=== PATIENT | female | born 1960 | race Caucasian/White ===

== ENCOUNTER 2018-03-27 01:42 | Emergency (ER) | payer OTHER, SELFPAY ==
[2018-03-27 01:50] VITALS: BP 191/91; PULSE 83; RESP 16; TEMP 36.3; O2SAT 97; BMI 27.4
[2018-03-27] MEDS: MECLIZINE HCL 12.5 MG TABLET 50 MG PO (02:38)
--- NOTE | 2018-03-27 02:38 | ED_ITS ---
HPI - General Adult General Chief complaint: Hypertension Stated complaint: high blood pressure x2 days Time Seen by Provider: 03/27/18 02:13 Source: patient Mode of arrival: ambulatory Limitations: no limitations History of Present Illness HPI narrative: The patient has not felt well for couple days. This includes mild stomach upset, but no vomiting. She has continued to drink plenty of fluids. She denies fever chills. She has had intermittent dizziness for the last couple days. She has had associated sore throat, ear pressure or vomiting. She woke from sleep, not feeling well. She checked her blood pressure , her blood pressures normally 130s-140s. She takes lisinopril. Her blood pressure is more elevated, on repeat check she was 180s. She has no headache, visual changes, chest pain or dyspnea upon arrival. She has not had hypertensive crisis. She is generally healthy. She does do scheduled fasting periods, but this is not new. Overall her appetite has been adequate. Or water input is very good. She has no other GI symptoms, no diarrhea. She denies dysuria. She has no focal weakness or numbness. Related Data Home Medications Medication Instructions Recorded Confirmed lisinopril 10 mg PO QDAY #0 06/17/16 thyroid (pork) [[place] Thyroid] 90 mg PO QDAY #0 06/17/16 Previous Rx's Medication Instructions Recorded ondansetron HCl [Zofran] 4 mg PO Q4HP PRN #20 tab 06/17/16 meclizine 25 mg PO QID PRN #20 tab 03/27/18 Allergies Allergy/AdvReac Type Severity Reaction Status Date / Time Sulfa (Sulfonamide Allergy Unknown Verified 03/27/18 01:54 Antibiotics) [SULFA (SULFONAMIDE ANTIBIOTICS)] hydrochlorothiazide AdvReac Verified 03/27/18 01:54 Review of Systems Review of Systems ROS Unobtainable: All systems reviewed & are unremarkable except as noted in HPI and below Constitutional Denies headache(s) Eyes Denies change in vision ENT Ears, Nose, Mouth, and Throat: Denies dysphagia, Reports dizziness, Denies headache(s), Denies neck pain and Denies sore throat Cardiovascular Denies chest pain, Denies irregular heart rhythm, Denies lightheadedness, Denies palpitations and Denies dyspnea Respiratory Denies cough, Denies dyspnea and Reports wheezing Gastrointestinal Gastrointestinal: Denies abdominal pain, Denies dysphagia, Reports nausea and Denies vomiting Genitourinary Denies dysuria Musculoskeletal Denies back pain and Denies neck pain Integumentary/Breasts Denies rash Neurologic Reports dizziness, Denies headache(s) and Denies focal weakness Psychiatric Reports anxiety Endocrine Denies palpitations Allergic/Immunologic Reports wheezing PFSH Medical History Hypertension (Acute) Hypothyroidism (Acute) Surgical History No history of previous surgery (Acute) Social History Smoking Status: Never smoker Exam Initial Vital Signs Initial Vital Signs: Vital Signs Temperature 97.4 F L 03/27/18 01:50 Pulse Rate 83 03/27/18 01:50 Respiratory Rate 16 03/27/18 01:50 Blood Pressure 191/91 H 03/27/18 01:50 Pulse Oximetry 97 03/27/18 01:50 Const General: cooperative and well developed Nutritional Appearance: well nourished Orientation: alert, awake and oriented x3 HENMT Head: normocephalic and atraumatic Ears: external ears normal and TM's normal bilaterally Nose: external nose normal and No nasal discharge Face and sinus: sinuses nontender and face symmetric Mouth: oral mucosae normal and moist mucous membranes Teeth and gingiva: dentition normal Throat: posterior oropharynx normal, tonsils normal and uvula midline Eyes General: appearance normal, both eyes and all related structures Eyelids: eyelids normal Conjunctivae: conjunctivae normal Sclera: sclerae normal Pupils: PERRL EOM: EOM intact bilaterally Neck Neck: No lymphadenopathy Resp Effort & Inspection: normal respiratory effort, able to speak in complete sentences, no respiratory distress and no use of accessory muscles Auscultation: clear to auscultation bilaterally, no rales, no rhonchi and no wheezes Cardio Rate: regular rate Rhythm: regular rhythm Heart Sounds: no click, no gallops, no murmurs and no rubs Pulses: normal peripheral pulses GI Inspection: non-distended Palpation: soft, No no hepatosplenomegaly, No guarding and No tender Auscultation: normal bowel sounds Back/Spine/Pelvis Back: No CVA tenderness Skin General: no rashes or lesions noted Neuro General: alert, oriented x3, gait normal, no focal motor deficits and [place] (Positive bilaterally) Speech: speech normal Extrem General: full ROM and no pedal edema Psych Appearance: well kempt Mental Status: mental status grossly normal Speech and Movement: speech and movement normal Attitude: cooperative Thought Content: normal Judgment: judgment good Course Course Narrative: Dizziness has improved with meclizine. Her heart rate is in the 140s, she is otherwise asymptomatic. She is okay for discharge home. Orders Ordered: ED Orders 03/27/18 EKG-12 Lead Routine 03/27/18 02:50 Urine Microscopic Stat Discontinued Medications Meclizine HCl (Antivert) 50 mg PO NOW ONE Stop: 03/27/18 02:31 Last Admin: 03/27/18 02:38 Dose: 50 mg Vital Signs - 8 hr 03/27/18 01:50 03/27/18 02:48 03/27/18 03:11 Temperature 97.4 F L Pulse Rate 83 70 68 Respiratory Rate 16 12 12 Blood Pressure 191/91 H Blood Pressure [Left Arm] 160/80 H 148/88 H Pulse Oximetry 97 97 96 03/27/18 03:31 Temperature Pulse Rate 71 Respiratory Rate 13 Blood Pressure 148/91 H Blood Pressure [Left Arm] Pulse Oximetry 96 Medical Decision Making Lab Data Lab Results 03/27/18 Range/Units 02:50 Urine RBC 0-1/hpf (0-5/HPF) Urine WBC None seen (0-5/HPF) Ur Squamous Epith Cells 0-1 /hpf Urine Bacteria Occasional (0-1) (None) Ur Culture Indicated? Cult not indicated Urine Dip Bedside Urine Glucose Negative Bedside Urine Bilirubin - Negative Bedside Urine Ketone - Negative Urine Specific [place] 1.010 Bedside Urine Occult Blood ++ Bedside Urine pH 7.5 Bedside Urine Protein - Negative Bedside Urine Urobilinogen - Negative Bedside Urine Nitrite - Negative Bedside Urine Leukocytes - Negative Esterase Point of care testing: Urine Dip Bedside Urine Glucose Negative Bedside Urine Bilirubin - Negative Bedside Urine Ketone - Negative Urine Specific [place] 1.010 Bedside Urine Occult Blood ++ Bedside Urine pH 7.5 Bedside Urine Protein - Negative Bedside Urine Urobilinogen - Negative Bedside Urine Nitrite - Negative Bedside Urine Leukocytes - Negative Esterase ECG Data Attestation: I personally reviewed and interpreted this ECG as follows: (Normal sized the rhythm rate 72 bpm. Possible right ventricular conduction delay. Minimal Q-waves in III and AVF. Normal intervals. No ectopy. No acute findings.) Discharge Plan Departure Patient Disposition: Home Clinical Impression: Acute labyrinthitis, Elevated blood pressure reading Discharge Date/Time: 03/27/18 03:36 Interventions: ED Discharge Assessment Last Done: 03/27/18 03:31 Instructions: DI for Labyrinthitis Activity Restrictions/Additional Instructions: Follow-up with her doctor regarding blood pressure management. Meclizine every 6 hr as needed for dizziness. This medication will also help with nausea. Rest, drink plenty of fluids. Return here or follow up with her doctor if symptoms persist more than 3 days. Prescriptions: New meclizine 25 mg tablet 25 mg PO QID PRN (Reason: dizziness) Qty: 20 RF: 0 No Action lisinopril 10 MG tablet 10 mg PO QDAY Qty: 0 RF: 0 thyroid (pork) [[facility] Thyroid] 90 MG tablet 90 mg PO QDAY Qty: 0 RF: 0 ondansetron HCl [Zofran] 4 MG tablet 4 mg PO Q4HP PRNQty: 20 RF: 0
[2018-03-27 02:48] VITALS: BP 160/80; PULSE 70; RESP 12; O2SAT 97
[2018-03-27 02:55] LABS: WBC Urine None Seen (0-5/HPF)
[2018-03-27 03:03] LABS: RBC Urine 0-1/HPF (0-5/HPF); Squamous Epithelial Cell Urine 0-1 /HPF
[2018-03-27 03:04] LABS: Bacteria Urine Occasional (0-1); Culture Indicated Urine Cult Not Indicated
[2018-03-27 03:11] VITALS: BP 148/88; PULSE 68; RESP 12; O2SAT 96
[2018-03-27 03:31] VITALS: BP 148/91; PULSE 71; RESP 13; O2SAT 96
== END 2018-03-27 03:36 | disposition home or self-care (01) ==
PROVIDERS: Emergency Provider Emergency Medicine
DX: H83.09 Labyrinthitis, unspecified ear (principal); R03.0 Elevated blood-pressure reading, without diagnosis of hypertension
CPT/HCPCS: 81003; 81015; 93005; 99282; 99284

== ENCOUNTER → 2018-05-01 15:37 | Outpatient (CLI) | payer OTHER, SELFPAY ==
--- NOTE | 2018-05-01 | DI.US.S_ITS ---
PROCEDURE: US CAROTID DOPPLER BI INDICATIONS: HYPERTENSION TECHNIQUE: Color and pulse Doppler interrogation was performed of both carotid systems, with image documentation and velocity measurements. COMPARISON: None. FINDINGS: Stenosis calculations are based on SRU (Society [employer] in Ultras[employer]) criteria. Right side: Brachial blood pressure: 166/98 mm Hg. Common carotid artery peak systolic velocity: 79 cm/sec. Internal carotid artery peak systolic velocity: 67 cm/sec. Internal carotid artery end diastolic velocity: 24 cm/sec. External carotid artery peak systolic velocity: 63 cm/sec. ICA/CCA peak systolic ratio: 0.85 . [place] scale imaging description: Minimal plaque at the bifurcation. Percent internal carotid artery stenosis: Less than 50%. Vertebral artery: Flow direction is antegrade. Left side: Brachial blood pressure: 149/92 mm Hg. Common carotid artery peak systolic velocity: 74 cm/sec. Internal carotid artery peak systolic velocity: 54 cm/sec. Internal carotid artery end diastolic velocity: 22 cm/sec. External carotid artery peak systolic velocity: 72 cm/sec. ICA/CCA peak systolic ratio: 0.74. [place] scale imaging description: Minimal plaque at the bifurcation. Percent internal carotid artery stenosis: Less than 50%. Vertebral artery: Flow direction is antegrade. IMPRESSION: Less than 50% narrowing of the internal carotid arteries bilaterally. Dictated by: Kisha Trujillo M.D. on 05/01/2018 at 17:08 Approved by: Kisha Trujillo M.D. on 05/01/2018 at 17:09
== END ==
PROVIDERS: Visit Provider Naturopath
DX: I65.23 Occlusion and stenosis of bilateral carotid arteries (principal); I10 Essential (primary) hypertension
CPT/HCPCS: 93880

== ENCOUNTER 2019-05-13 04:47 | Observation (INO) | payer OTHER, SELFPAY ==
[2019-05-13] VITALS (17 sets, daily range): BP systolic 113–167; BP diastolic 55–103; PULSE 78–177; RESP 12–21; TEMP 36.7–37.5; O2SAT 94–99; BMI 23.3
--- NOTE | 2019-05-13 04:56 | ED_ITS ---
HPI - General Adult General Chief complaint: Arrhythmia/Palpitations Stated complaint: feels like heart is out of rythym Time Seen by Provider: 05/13/19 04:51 Source: patient Mode of arrival: Ambulatory Limitations: no limitations History of Present Illness HPI narrative: Patient is a 59-year-old female. History of hypertension and hypothyroid. Here for evaluation of feeling like her heart is beating fast. Patient states that for the past couple days she has had a runny nose and a cough. No fevers. No problems breathing. No chest pain. Went to bed last evening feeling well. Woke up at about 0300 hours in the morning. Took an ibuprofen. Then woke up again at for the morning feel like her heart is beating fast. It has been constant since she woke up. Ambulated into the emergency department. No prior history of atrial fibrillation however she states that ?all my family ?has had atrial fibrillation. Not on anticoagulation. No prior cardiac history. Related Data Home Medications Medication Instructions Recorded Confirmed thyroid (pork) [[place] Thyroid] 90 mg PO QDAY #0 06/17/16 08/29/18 Previous Rx's Medication Instructions Recorded lisinopril 20 mg tablet 20 mg PO QDAY #90 tab 08/29/18 amlodipine 5 mg tablet 5 mg PO DAILY #90 tab 03/12/19 Allergies Allergy/AdvReac Type Severity Reaction Status Date / Time Sulfa (Sulfonamide Allergy Unknown Verified 08/29/18 09:52 Antibiotics) [SULFA (SULFONAMIDE ANTIBIOTICS)] hydrochlorothiazide AdvReac Verified 08/29/18 09:52 Review of Systems Constitutional Constitutional: Denies fever(s) and Denies headache(s) ENT Ears, Nose, Mouth, and Throat: Denies vertigo, Denies dizziness, Denies headache(s) and Reports nasal congestion Cardiovascular Cardiovascular: Denies chest pain, Reports rapid heart rate, Reports palpitations and Denies dyspnea Respiratory Respiratory: Reports cough and Denies dyspnea Gastrointestinal Gastrointestinal: Denies abdominal pain, Denies nausea and Denies vomiting Genitourinary Genitourinary: Denies dysuria Musculoskeletal Musculoskeletal: Denies myalgias and Denies arthralgias Integumentary/Breasts Skin/Breast: Denies lesions and Denies rash Neurologic Neurologic: Denies behavioral changes, Denies vertigo, Denies dizziness and Denies headache(s) Psychiatric Psychiatric: Denies behavioral changes Endocrine Endocrine: Reports palpitations Hematologic/Lymphatic Hematologic/Lymphatic: Denies easy bleeding and Denies easy bruising Patient History Medical History Chicken pox (Resolved) Headache (Chronic) Hypertension (Chronic) Hypothyroidism (Chronic) Measles (Resolved) Mumps (Resolved) Osteopenia (Chronic) Sjogren's syndrome (Chronic) Surgical History (Updated 09/04/18 @ 14:36 by Jacinda Mays) Anesthesia (Resolved) History of appendectomy (Resolved) History of foot surgery (Resolved) History of hysterectomy (Resolved) No history of previous surgery (Acute) Social History Smoking Status: Never smoker Smoking Status: Never smoker alcohol intake frequency: 0-2 drinks per day Substance Use Type: does not use Exam Initial Vital Signs Initial Vital Signs: Vital Signs Temperature 98.0 F 05/13/19 04:52 Pulse Rate 177 H 05/13/19 04:52 Respiratory Rate 18 05/13/19 04:52 Blood Pressure 137/75 05/13/19 04:52 Pulse Oximetry 97 05/13/19 04:52 Const General: cooperative and comfortable Limitations: mental status not altered HENMT Head: normal to inspection and normocephalic Resp Effort & Inspection: normal respiratory effort Auscultation: clear to auscultation bilaterally Cardio Rate: tachycardic Rhythm: abnormal rhythm irregularly irregular Pulses: radial pulses present GI Inspection: non-distended Palpation: soft Skin Lesions: no lesions Rashes: no rashes Neuro General: alert and awake Cognition: normal cognition Speech: speech normal Extrem General: normal to inspection and capillary refill normal Psych Appearance: grossly normal and well kempt Procedures Cardioversion Consent Signed: Yes Indication: AFib Stability: Stable Number of attempts (shocks): 3 Joules used: 150 Cardiac rhythm post-cardioversion: AFib Procedural Sedation Consent signed: Yes Time out performed: Yes Indication: cardioversion Presedation Evaluation: See note ASA Class: II Mallampati Airway Classification: Class I Preparation: monitoring coordinator applied, pulse oximeter, capnometry used and supplemental O2 applied Fentanyl: IV Fentanyl dose (mcg): 25 IV Propofol dose (mg): 90 ED Sedation Level: Moderate (Concious) Patient Tolerated Procedure: Well and No complications Scores GCS [place] coma scale eye opening: Spontaneous [place] coma scale verbal response: Orientated [place] coma scale motor response: Obey commands Roxie coma scale total score: 15 Course Orders Ordered: ED Orders 05/13/19 04:52 EKG-12 Lead Stat 05/13/19 05:00 Basic Metabolic Panel Stat Complete Blood Count AUTO DIFF Stat NT-proBNP (BNP-Adult 18+) Stat Partial Thromboplastin Time Stat Prothrombin Time INR Stat Thyroid Stimulating Hormone Stat Troponin I Stat 05/13/19 05:38 CT angio chest PE protocol Stat 05/13/19 06:25 Respiratory Panel (Film Array) Stat 05/13/19 06:32 Urine Microscopic Stat 05/13/19 08:24 EC echo doppler complete Stat DILTIAZEM (Diltiazem 125 Mg/125 [id number]) 125 mg in 125 mls @ 5 mls/hr IV TITRATE ASCENCION; Protocol Last Titration: 05/13/19 06:39 Dose: 10 mg/hr, 10 mls/hr Documented by: Admin: 05/13/19 06:20 Dose: 5 mg/hr, 5 mls/hr Documented by: ANTHONY Sodium Chloride (Normal Saline 0.9%) 1,000 mls @ 125 mls/hr IV CONT ASCENCION Last Admin: 05/13/19 06:46 Dose: 125 mls/hr Documented by: ANTHONY Discontinued Medications Diltiazem HCl (Cardizem) 20 mg IV NOW ONE Stop: 05/13/19 05:32 Last Admin: 05/13/19 05:40 Dose: 20 mg Documented by: ANTHONY Fentanyl (Sublimaze) 25 mcg IV NOW ONE Stop: 05/13/19 05:06 Last Admin: 05/13/19 05:17 Dose: 25 mcg Documented by: ANISH Sodium Chloride (Normal Saline 0.9%) 1,000 mls @ 1,000 mls/hr IV BOLUS ONE Stop: 05/13/19 06:38 Last Infusion: 05/13/19 06:54 Dose: 0 mls/hr Documented by: Admin: 05/13/19 05:20 Dose: 1,000 mls/hr Documented by: ANTHONY Levofloxacin (Levaquin) 750 mg in 150 mls @ 100 mls/hr IV NOW ONE Stop: 05/13/19 08:18 Last Admin: 05/13/19 06:56 Dose: 100 mls/hr Documented by: ANTHONY Metoprolol Succinate (Toprol Xl) 25 mg PO NOW ONE Stop: 05/13/19 08:25 Metoprolol Tartrate (Lopressor) 5 mg IV NOW ONE Stop: 05/13/19 06:57 Last Admin: 05/13/19 07:17 Dose: 5 mg Documented by: ANTHONY Propofol (Diprivan) 100 mg IV NOW ONE Stop: 05/13/19 05:06 Last Admin: 05/13/19 05:20 Dose: 100 mg Documented by: ANISH Rivaroxaban (Xarelto) 15 mg PO NOW ONE Stop: 05/13/19 06:57 Last Admin: 05/13/19 07:15 Dose: 15 mg Documented by: ANTHONY Vital Signs Vital signs: Vital Signs - 8 hr 05/13/19 04:52 05/13/19 05:25 05/13/19 05:28 Temperature 98.0 F Pulse Rate 177 H 166 H 166 H Respiratory Rate 18 18 21 Blood Pressure 137/75 Blood Pressure [Left Arm] 113/67 120/83 Pulse Oximetry 97 97 94 05/13/19 05:30 05/13/19 05:37 05/13/19 05:40 Temperature Pulse Rate 166 H 177 H 166 H Respiratory Rate 20 20 Blood Pressure 158/85 H Blood Pressure [Left Arm] 164/102 H Pulse Oximetry 96 05/13/19 06:41 05/13/19 06:50 05/13/19 07:00 Temperature Pulse Rate 163 H 157 H 167 H Respiratory Rate 16 18 20 Blood Pressure Blood Pressure [Left Arm] 145/95 H 167/67 H 136/83 Pulse Oximetry 97 96 96 05/13/19 07:30 05/13/19 07:43 Temperature Pulse Rate 143 H 128 H Respiratory Rate 12 16 Blood Pressure Blood Pressure [Left Arm] 119/103 H 132/89 Pulse Oximetry 96 96 Medical Decision Making Medical Records Medical records reviewed: Yes I reviewed the patient's medical records. Lab Data Lab results reviewed: Yes I reviewed the patient's lab results. Result diagrams: 05/13/19 05:00 05/13/19 05:00 Labs: Lab Results 05/13/19 05/13/19 05/13/19 Range/Units 05:00 05:00 05:00 WBC 10.7 (4.5-11.0) X10^3/uL RBC 5.08 (4.0-5.2) X10^6/uL Hgb 15.7 (12.0-16.0) g/dL Hct 46.6 H (36-46) % MCV 91.6 (80-100) fL MCH 30.8 (26-34) PG MCHC 33.6 (30-36) % RDW 13.0 (11.6-14.8) % Plt Count 221 (150-400) X10^3/uL Neut % (Auto) 70.4 (50-75) % Lymph % (Auto) 18.9 L (25-40) % [place] % (Auto) 9.6 (3-14) % Eos % (Auto) 0.7 L (2-4) % Baso % (Auto) 0.4 (0-2) % Neut # (Auto) 7600 H (4999-2660) /uL Lymph # (Auto) 2000 (8249-9289) /uL [place] # (Auto) 1000 H (0-900) /uL Eos # (Auto) 100 (0-450) /uL Baso # (Auto) 0 (0-100) /uL PT 13.2 H (10.1-12.7) SECONDS INR 1.1 (0.9-1.3) APTT 32 (26.4-36.2) SECONDS Sodium 133 L (137-145) mmol/L Potassium 3.9 (3.4-5.1) mmol/L Chloride 96 L (98-107) mmol/L Carbon Dioxide 28 (22-32) mmol/L BUN 11 (7-17) mg/dL Creatinine 0.65 (0.52-1.04) mg/dL Estimated GFR > 60.0 (>60) mL/min BUN/Creatinine Ratio 16.9 (6-22) Glucose 129 H (80-110) mg/dL Calcium 9.4 (8.4-10.2) mg/dL Troponin I (0.01-0.034) ng/mL NT-Pro-B Natriuret Pep (<125) pg/mL TSH (0.47-4.68) uIU/mL Urine RBC (0-5/HPF) Urine WBC (0-5/HPF) Ur Squamous Epith Cells (0-5/HPF) Urine Bacteria (None) Ur Culture Indicated? Chlamy pneumoniae PCR (Not Detect) Adenovirus (PCR) (Not Detect) B.parapertussis DNA PCR (Not Detect) Coronavirus OC43 (PCR) (Not Detect) Coronavirus HKU1 (PCR) (Not Detect) Coronavirus 229E (PCR) (Not Detect) Coronavirus NL63 (PCR) (Not Detect) Human Metapneumovir PCR (Not Detect) Influenza Type A (PCR) (Not Detect) Influenza Type B (PCR) (Not Detect) M. pneumoniae (PCR) (Not Detect) Parainfluenza 1 (PCR) (Not Detect) Parainfluenza 2 (PCR) (Not Detect) Parainfluenza 3 (PCR) (Not Detect) Parainfluenza 4 (PCR) (Not Detect) RSV (PCR) (Not Detect) Entero/Rhino (PCR) (Not Detect) 05/13/19 05/13/19 05/13/19 Range/Units 05:00 05:00 05:00 WBC (4.5-11.0) X10^3/uL RBC (4.0-5.2) X10^6/uL Hgb (12.0-16.0) g/dL Hct (36-46) % MCV (80-100) fL MCH (26-34) PG MCHC (30-36) % RDW (11.6-14.8) % Plt Count (150-400) X10^3/uL Neut % (Auto) (50-75) % Lymph % (Auto) (25-40) % [place] % (Auto) (3-14) % Eos % (Auto) (2-4) % Baso % (Auto) (0-2) % Neut # (Auto) (8813-9224) /uL Lymph # (Auto) (5222-7573) /uL [place] # (Auto) (0-900) /uL Eos # (Auto) (0-450) /uL Baso # (Auto) (0-100) /uL PT (10.1-12.7) SECONDS INR (0.9-1.3) APTT (26.4-36.2) SECONDS Sodium (137-145) mmol/L Potassium (3.4-5.1) mmol/L Chloride (98-107) mmol/L Carbon Dioxide (22-32) mmol/L BUN (7-17) mg/dL Creatinine (0.52-1.04) mg/dL Estimated GFR (>60) mL/min BUN/Creatinine Ratio (6-22) Glucose (80-110) mg/dL Calcium (8.4-10.2) mg/dL Troponin I < 0.012 (0.01-0.034) ng/mL NT-Pro-B Natriuret Pep 327 H (<125) pg/mL TSH 2.29 (0.47-4.68) uIU/mL Urine RBC (0-5/HPF) Urine WBC (0-5/HPF) Ur Squamous Epith Cells (0-5/HPF) Urine Bacteria (None) Ur Culture Indicated? Chlamy pneumoniae PCR (Not Detect) Adenovirus (PCR) (Not Detect) B.parapertussis DNA PCR (Not Detect) Coronavirus OC43 (PCR) (Not Detect) Coronavirus HKU1 (PCR) (Not Detect) Coronavirus 229E (PCR) (Not Detect) Coronavirus NL63 (PCR) (Not Detect) Human Metapneumovir PCR (Not Detect) Influenza Type A (PCR) (Not Detect) Influenza Type B (PCR) (Not Detect) M. pneumoniae (PCR) (Not Detect) Parainfluenza 1 (PCR) (Not Detect) Parainfluenza 2 (PCR) (Not Detect) Parainfluenza 3 (PCR) (Not Detect) Parainfluenza 4 (PCR) (Not Detect) RSV (PCR) (Not Detect) Entero/Rhino (PCR) (Not Detect) 05/13/19 05/13/19 Range/Units 06:25 06:32 WBC (4.5-11.0) X10^3/uL RBC (4.0-5.2) X10^6/uL Hgb (12.0-16.0) g/dL Hct (36-46) % MCV (80-100) fL MCH (26-34) PG MCHC (30-36) % RDW (11.6-14.8) % Plt Count (150-400) X10^3/uL Neut % (Auto) (50-75) % Lymph % (Auto) (25-40) % [place] % (Auto) (3-14) % Eos % (Auto) (2-4) % Baso % (Auto) (0-2) % Neut # (Auto) (9847-0351) /uL Lymph # (Auto) (8860-5391) /uL [place] # (Auto) (0-900) /uL Eos # (Auto) (0-450) /uL Baso # (Auto) (0-100) /uL PT (10.1-12.7) SECONDS INR (0.9-1.3) APTT (26.4-36.2) SECONDS Sodium (137-145) mmol/L Potassium (3.4-5.1) mmol/L Chloride (98-107) mmol/L Carbon Dioxide (22-32) mmol/L BUN (7-17) mg/dL Creatinine (0.52-1.04) mg/dL Estimated GFR (>60) mL/min BUN/Creatinine Ratio (6-22) Glucose (80-110) mg/dL Calcium (8.4-10.2) mg/dL Troponin I (0.01-0.034) ng/mL NT-Pro-B Natriuret Pep (<125) pg/mL TSH (0.47-4.68) uIU/mL Urine RBC 0-1/hpf (0-5/HPF) Urine WBC None seen (0-5/HPF) Ur Squamous Epith Cells 0-1 /hpf (0-5/HPF) Urine Bacteria Many (>30) H (None) Ur Culture Indicated? Cult not indicated Chlamy pneumoniae PCR Not detected (Not Detect) Adenovirus (PCR) Not detected (Not Detect) B.parapertussis DNA PCR Not detected (Not Detect) Coronavirus OC43 (PCR) Not detected (Not Detect) Coronavirus HKU1 (PCR) Not detected (Not Detect) Coronavirus 229E (PCR) Not detected (Not Detect) Coronavirus NL63 (PCR) Not detected (Not Detect) Human Metapneumovir PCR Detected H (Not Detect) Influenza Type A (PCR) Not detected (Not Detect) Influenza Type B (PCR) Not detected (Not Detect) M. pneumoniae (PCR) Not detected (Not Detect) Parainfluenza 1 (PCR) Not detected (Not Detect) Parainfluenza 2 (PCR) Not detected (Not Detect) Parainfluenza 3 (PCR) Not detected (Not Detect) Parainfluenza 4 (PCR) Not detected (Not Detect) RSV (PCR) Not detected (Not Detect) Entero/Rhino (PCR) Not detected (Not Detect) Urine Dip Bedside Urine Glucose Negative Bedside Urine Bilirubin - Negative Bedside Urine Ketone ++ 40 Urine Specific [place] 1.010 Bedside Urine Occult Blood ++ Bedside Urine pH 7.5 Bedside Urine Protein - Negative Bedside Urine Urobilinogen - Negative Bedside Urine Nitrite - Negative Bedside Urine Leukocytes +/- 15 Esterase Point of care testing: Urine Dip Bedside Urine Glucose Negative Bedside Urine Bilirubin - Negative Bedside Urine Ketone ++ 40 Urine Specific [place] 1.010 Bedside Urine Occult Blood ++ Bedside Urine pH 7.5 Bedside Urine Protein - Negative Bedside Urine Urobilinogen - Negative Bedside Urine Nitrite - Negative Bedside Urine Leukocytes +/- [address] scan - abdomen/pelvis: Radiologist's Impression: Focal infiltrate or information in the left lower lobe. Otherwise unremarkable study. No pulmonary embolism ECG Data Attestation: I personally reviewed and interpreted this ECG as follows: Prior ECG tracings: not available for review Interpretation: Atrial fibrillation Ventricular rate of 177 Normal axis Normal QRS Nonspecific ST T wave changes MDM Narrative Medical decision making narrative: Symptoms started within the past 6 hours. Arrive tachycardic but not hypotensive. Stable. Had a discussion with her regarding treatment options to include rate control versus rhythm control. After this discussion patient opted for the cardioversion. Three tabs at cardioversion with the 1st two had 150 joules and the 3rd at 200 joules unsuccessful. After each attempted cardioversion patient did convert to a sinus rhythm for approximately 10 seconds with a heart rate in the 80s to 90s but then converted back to atrial fibrillation. Patient tolerated these procedures well. Did discuss the case with Dr. stack with cardiology who recommended further investigation of the cause of her atrial fibrillation. A CT scan of the chest was ordered which did not show any pulmonary embolism but initial report showed will was concerning for a left lower lobe pneumonia. She was given Levaquin for this. Her respiratory panel then resulted as human metapneumovirus. Patient was started on a Cardizem drip. This was minimally effective. She was given metoprolol IV which improved her heart rate somewhat.. Patient was also given anticoagulation. Discussed the case with Dr. Prado with Internal Medicine agree to admit the patient for further evaluation and treatment. He asked that I give 25 mg of metoprolol p.o. which was ordered. He also asked me to order her an echocardiogram to be performed as an inpatient which was also performed. He will follow up on the results of this. I did discuss the diagnosis in the admission with the patient. Both her and her who is at bedside expressed understanding and agreement. Discharge Plan Departure Patient Disposition: Admitted as Observation Clinical Impression: Infection due to human metapneumovirus (hMPV) Atrial fibrillation Qualifiers: Atrial fibrillation type: unspecified Qualified Code(s): I48.91 - Unspecified atrial fibrillation Pneumonia Qualifiers: Pneumonia type: due to unspecified organism Laterality: left Lung location: lower lobe of lung Qualified Code(s): J18.9 - Pneumonia, unspecified organism
[2019-05-13 05:16] LABS: Add Manual Diff / Slide Review NO; Basophils Absolute Auto 0 /uL (0-100); Basophils Percent Auto 0.4 % (0-2); Eosinophils Absolute Auto 100 /uL (0-450); Eosinophils Percent Auto 0.7 % (2-4); Hematocrit 46.6 % (36-46); Hemoglobin 15.7 g/dL (12.0-16.0); Lymphocytes Absolute Auto 2000 /uL (1100-4500); Lymphocytes Percent Auto 18.9 % (25-40); Mean Corpuscular HGB Conc 33.6 % (30-36); Mean Corpuscular Hemoglobin 30.8 PG (26-34); Mean Corpuscular Volume 91.6 fL (80-100); Monocytes Absolute Auto 1000 /uL (0-900); Monocytes Percent Auto 9.6 % (3-14); Neutrophils Absolute Auto 7600 /uL (1500-7000); Neutrophils Percent Auto 70.4 % (50-75); Platelet Count 221 X10^3/uL (150-400); Red Blood Cell Count 5.08 X10^6/uL (4.0-5.2); White Blood Cell Count 10.7 X10^3/uL (4.5-11.0)
[2019-05-13] MEDS: fentaNYL 100 MCG/2 ML INJ 25 MCG IV (05:17)
[2019-05-13] MEDS: SODIUM CHLORIDE 0.9% 1,000 ML 1000 ML IV (05:20)
[2019-05-13] MEDS: propofoL 200 MG/20 ML VIAL 100 MG IV (05:20)
[2019-05-13 05:27] LABS: INR 1.1 (0.9-1.3); Prothrombin Time 13.2 SECONDS (10.1-12.7)
[2019-05-13 05:29] LABS: PTT Partial Thromboplastin Tim 32 SECONDS (26.4-36.2)
[2019-05-13 05:31] LABS: BUN Creatinine Ratio 16.9 (6-22); Blood Urea Nitrogen 11 mg/dL (7-17); Calcium 9.4 mg/dL (8.4-10.2); Carbon Dioxide 28 mmol/L (22-32); Chloride 96 mmol/L (98-107); Estimated Glomerular Filt Rate > 60.0 mL/min (>60); Glucose 129 mg/dL (80-110); HEMOLYSIS < 15 (0-50); Potassium 3.9 mmol/L (3.4-5.1); Sodium 133 mmol/L (137-145)
--- NOTE | 2019-05-13 05:38 | DI.CT.S_ITS ---
PROCEDURE: CT ANGIO CHEST PE PROTOCOL INDICATIONS: Chest pain, shortness of breath, tachycardia TECHNIQUE: After the administration of intravenous contrast, 2 mm thick sections acquired from the pulmonary apices to the posterior costophrenic angles. 3-dimensional maximum intensity projection (MIP) coronal and sagittal reformats were then acquired through the thorax. For radiation dose reduction, the following was used: automated exposure control, adjustment of mA and/or kV according to patient size. COMPARISON: None. FINDINGS: Image quality: Excellent. Pulmonary arteries: Pulmonary arteries are normal in size, and demonstrate no intraluminal filling defects to suggest central pulmonary embolism. Lungs and pleura: Focal subtle ground glass opacity in the more confluent density in the basilar portion of the left lower lobe. Consider viral pneumonitis/pneumonia. No pleural effusions or pneumothorax. Central and peripheral airways are patent. Mediastinum: Heart size is normal, without pericardial effusion. No mediastinal or hilar adenopathy. Thoracic aorta is mildly prominent, but not frankly aneurysmal, measuring 3.9 cm. Esophagus is normal in caliber, without hiatal hernia. Bones and chest wall: No suspicious bony lesions. Ribs and thoracic spine appear intact throughout. Thyroid gland is unremarkable. No axillary or supraclavicular adenopathy. Abdomen: Visualized upper abdominal solid organs appear normal in the early arterial phase of enhancement. IMPRESSION: 1. No evidence pulmonary emboli. 2. Small focal area of groundglass opacity with more focal confluent consolidation in the left lower lobe. Consider viral pneumonitis/pneumonia. Comment: Final report is concordant with preliminary interpretation provided by [facility]. Comment: Findings were discussed with Dr. Forrest at the time of study dictation.Dr. Forrest notes that the patient tested positive for a respiratory virus in a routine virus panel. Dictated by: Adryan Avila M.D. on 05/13/2019 at 8:05 Approved by: Adryan Avila M.D. on 05/13/2019 at 8:15
[2019-05-13] MEDS: dilTIAZem 5 MG/ML SDV 20 MG IV (05:40)
[2019-05-13 06:11] LABS: NT-proBNP (BNP-Adult 18+) 327 pg/mL (<125)
[2019-05-13 06:14] LABS: Troponin I < 0.012 ng/mL (0.01-0.034)
[2019-05-13] MEDS: DILTIAZEM 125 MG/125 ML PIGGYBACK IV (06:20)
[2019-05-13 06:28] LABS: Thyroid Stimulating Hormone 2.29 uIU/mL (0.47-4.68)
[2019-05-13] MEDS: SODIUM CHLORIDE 0.9% 1,000 ML 125 ML IV (06:46)
[2019-05-13 06:47] LABS: WBC Urine None Seen (0-5/HPF)
[2019-05-13] MEDS: levoFLOXacin 750 MG/150 ML PIGGYBACK 100 MG IV (06:56)
[2019-05-13] MEDS: RIVAROXABAN 10 MG TABLET 15 MG PO (07:15)
[2019-05-13] MEDS: METOPROLOL TARTRATE 5 MG/5 ML INJ IV (07:17)
[2019-05-13 07:55] LABS: Adenovirus Not Detected (Not Detect); Bordetella pertussis Not Detected (Not Detect); Chlamydophila pneumoniae Not Detected (Not Detect); Coronavirus 229E Not Detected (Not Detect); Coronavirus HKU1 Not Detected (Not Detect); Coronavirus NL 63 Not Detected (Not Detect); Coronavirus OC43 Not Detected (Not Detect); Human Metapneumovirus Detected (Not Detect); Human Rhinovirus/Enterovirus Not Detected (Not Detect); Influenza A Not Detected (Not Detect); Influenza B Not Detected (Not Detect); Mycoplasma pneumoniae Not Detected (Not Detect); Parainfluenza Virus 1 Not Detected (Not Detect); Parainfluenza Virus 2 Not Detected (Not Detect); Parainfluenza Virus 3 Not Detected (Not Detect); Parainfluenza Virus 4 Not Detected (Not Detect); Respiratory Syncytial Virus Not Detected (Not Detect)
[2019-05-13 08:04] LABS: Bacteria Urine Many (>30); Culture Indicated Urine Cult Not Indicated; RBC Urine 0-1/HPF (0-5/HPF); Squamous Epithelial Cell Urine 0-1 /HPF (0-5/HPF)
--- NOTE | 2019-05-13 08:24 | DI.ECHO.S_ITS ---
[facility] + + Hospital +---------+ : : [address] : : : : [place], : : : : [place] [id number] : : : : Phone: [phone] [id number] Echocardiogram Report + + :Name: RUTH CORDERO Study Date: 05/13/2019 Height: 66 in : :[facility] Exam Location: [facility] Weight: 145 lb : : Gender: Female BSA: 1.7 m2 : :: 1960 Age: 59 yrs BP: 135/65 mmHg: :Reason For Study: AFib : :Ordering Physician: [place] : :Hospitalist Performed By: Bernadette Bradley : :Referring: JAZIEL WEISS : + + Interpretation Summary The left ventricle is normal in size. The ejection fraction is estimated to be 55-60%. The right ventricle is normal in size and function. No significant valvular pathology seen. Procedure: A two-dimensional transthoracic echocardiogram with color flow and Doppler was performed. The study quality was technically adequate. There is no prior echocardiogram noted for this patient. The patient was in normal sinus rhythm during the exam. Left Ventricle: The left ventricle is normal in size. Proximal septal thickening is noted. There is no echo evidence for significant left ventricular outflow tract obstruction. There is no thrombus. The ejection fraction is estimated to be 55-60%. There are no focal wall motion abnormalities. MV E/A: 1.1 Med Peak E' Maurizio: 6.8 cm/sec E/E' med: 9.9. Right Ventricle: The right ventricle is normal in size and function. Atria: Both atria are normal in size. The interatrial septum is intact with no evidence for an atrial septal defect. Mitral Valve: The mitral valve leaflets are slightly calcified. There is trace mitral regurgitation. Aortic Valve: The aortic valve is trileaflet. The aortic valve opens well. There is discrete nodular thickening of the right coronary cusp. The aortic valve is mildly calcified. There is no aortic valve stenosis. No aortic regurgitation is present. Tricuspid Valve: The tricuspid valve is normal in structure and function. Pulmonary artery pressures cannot be estimated because of the lack of a measurable TR jet velocity. There is trace tricuspid regurgitation. Pulmonic Valve: The pulmonic valve is normal in structure and function. There is a trace or physiologic amount of pulmonic regurgitation. Great Vessels: The ascending aorta is normal in size. The IVC is dilated (diameter is greater than 2.1 cm) yet it collapses greater than 50% with a sniff. This suggests a right atrial pressure of 8 mm Hg. Pericardium/ Pleura There is no pericardial effusion. There is no pleural effusion. MMode/2D Measurements & Calculations LVIDd: 3.9 cm LVOT diam: 2.0 cm LVIDs: 2.3 cm Ao root diam: 2.9 cm IVSd: 1.1 cm asc Aorta Diam: 3.5 cm LVPWd: 0.96 cm Ao Arch Diam (Prox Trans): 2.4 cm LV zaidi. diameter/BSA (cm/m^2): 2.2 LV sys. diameter/BSA (cm/m^2): 1.3 FS: 41.3 % LA A2 area: 18.0 cm2 RA long axis: 4.2 cm LA A4 area: 12.2 cm2 RA area: 10.4 cm2 LA length (vol): 3.9 cm RA vol: 22.0 ml LA vol: 47.3 ml RA : 12.6 ml/m2 LA vol index: 27.1 ml/m2 TAPSE: 2.2 cm IVC diam: 2.5 cm Doppler Measurements & Calculations Ao V2 max: 150.9 cm/sec LVOT Max Maurizio: 95.4 cm/sec Ao V2 mean: 110.0 cm/sec LV V1 max P.6 mmHg Ao V2 VTI: 27.4 cm LV V1 VTI: 20.2 cm Ao max P.1 mmHg Ao mean P.2 mmHg FREDERIC(I,D): 2.4 cm2 MV E max maurizio: 67.6 cm/sec FREDERIC(V,D): 2.0 cm2 MV A max maurizio: 59.0 cm/sec FREDERIC indexed to BSA (cm^2/m^2): 1.4 MV E/A: 1.1 sev ratio: 0.74 Med Peak E' Maurizio: 6.8 cm/sec E/E' med: 9.9 Lat Peak E' Maurizio: 10.0 cm/sec E/E' lat: 6.8 E/e' average: 8.3 MV dec time: 0.12 sec SV(LVOT): 64.9 ml Reading Physician:12:57 PM
[2019-05-13] MEDS: METOPROLOL ER 25 MG TABLET PO (09:05)
--- NOTE | 2019-05-13 11:31 | P.HP_ITS ---
History of Present Illness History of Present Illness Date Patient Seen: 05/13/19 Time Patient Seen: 10:30 Chief complaint: feels like heart is out of rythym Narrative: Rebecca Funes Is a 59-year-old female with past medical history of hypothyroidism and hypertension who presented to the emergency room this morning with palpitations. She states for the past couple of days she has had a runny nose and cough. She is not felt any fevers or chills. She did note some epigastric burning last night, but no noted chest pain or palpitations at that time. She woke up at around 4:00 a.m. this morning and felt very sweaty, with a headache, and felt her heart pounding and beating very fast. She decided to come the emergency room room at that time. She denied any chest pain this morning, and she did not feel short of breath at all. She denies any recent chest pains, chest pressure, dyspnea on exertion, orthopnea, lower extremity edema. She denies any prior heart issues, but does state her entire family has atrial fibrillation. In the emergency room, patient presented with tachycardia, AFib with RVR with a rate of 177 on her initial EKG. She was not hypotensive. ER attempted cardioversion x3, each cardioversion was successful but she returned back into atrial fibrillation after approximately 10 seconds each time. Case was discussed with Dr. Rizvi who recommended an echocardiogram and further investigation as to the cause of her atrial fibrillation. CT angiogram performed of her chest did not show any pulmonary embolism but did show a possible left lower lobe pneumonia. Initial lab evaluations were unremarkable except for mild hyponatremia at 133, proBNP of 327. TSH was unremarkable at 2.29. UA was not remarkable for evidence of infection. Her viral panel did come back positive for human metapneumovirus. Patient was started on a Cardizem drip which was minimally effective, she was then given IV metoprolol which improved her rate. Patient was also given anticoagulation. After given 25 mg of oral metoprolol, patient returned into sinus rhythm with a rate in the 80s. She is still on a diltiazem drip at this time, but will try and titrate off. If she remains controlled, and echo was performed, she may be able to be discharged h ome later today. She is admitted under observation status at this time. Patient History Medical History Chicken pox (Resolved) Headache (Chronic) Hypertension (Chronic) Hypothyroidism (Chronic) Measles (Resolved) Mumps (Resolved) Osteopenia (Chronic) Sjogren's syndrome (Chronic) Surgical History (Updated 09/04/18 @ 14:36 by Jacinda Mays) Anesthesia (Resolved) History of appendectomy (Resolved) History of foot surgery (Resolved) History of hysterectomy (Resolved) No history of previous surgery (Acute) Family & Social History Safety & Behavioral: Feels Safe in Current Yes Environment Tobacco & Substance use: Smoking Status Never smoker alcohol intake frequency 0-2 drinks per day Substance Use Type does not use Meds Home Medications and Allergies Home Medications Medication Instructions Recorded Confirmed Type thyroid (pork) [[place] Thyroid] 90 mg PO QDAY #0 06/17/16 08/29/18 History lisinopril 20 mg tablet 20 mg PO QDAY #90 tab 08/29/18 Rx amlodipine 5 mg tablet 5 mg PO DAILY #90 tab 03/12/19 Rx Allergies Allergy/AdvReac Type Severity Reaction Status Date / Time Sulfa (Sulfonamide Allergy Unknown Verified 08/29/18 09:52 Antibiotics) [SULFA (SULFONAMIDE ANTIBIOTICS)] hydrochlorothiazide AdvReac Verified 08/29/18 09:52 Review of Systems Review of Systems Narrative: All other systems reviewed with the patient and are negative unless otherwise stated. Exam Vital Signs (past 8 hours): - 05/13/19 04:52 05/13/19 05:25 05/13/19 05:28 Temperature 98.0 F Pulse Rate 177 H 166 H 166 H Respiratory Rate 18 18 21 Blood Pressure 137/75 Blood Pressure [Left Arm] 113/67 120/83 Pulse Oximetry 97 97 94 05/13/19 05:30 05/13/19 05:37 05/13/19 05:40 Temperature Pulse Rate 166 H 177 H 166 H Respiratory Rate 20 20 Blood Pressure 158/85 H Blood Pressure [Left Arm] 164/102 H Pulse Oximetry 96 05/13/19 06:41 05/13/19 06:50 05/13/19 07:00 Temperature Pulse Rate 163 H 157 H 167 H Respiratory Rate 16 18 20 Blood Pressure Blood Pressure [Left Arm] 145/95 H 167/67 H 136/83 Pulse Oximetry 97 96 96 05/13/19 07:30 05/13/19 07:43 05/13/19 09:05 Temperature Pulse Rate 143 H 128 H 154 H Respiratory Rate 12 16 Blood Pressure 156/98 H Blood Pressure [Left Arm] 119/103 H 132/89 Pulse Oximetry 96 96 05/13/19 09:16 05/13/19 10:16 05/13/19 10:31 Temperature Pulse Rate 152 H 82 83 Respiratory Rate 16 16 Blood Pressure 133/67 Blood Pressure [Left Arm] 133/55 L 133/67 Pulse Oximetry 98 99 05/13/19 11:07 Temperature 99.5 F Pulse Rate 78 Respiratory Rate 18 Blood Pressure 135/65 Blood Pressure [Left Arm] Pulse Oximetry 98 Oxygen Delivery Method Room Air Oxygen Flow Rate 0 Narrative Exam Narrative: GENERAL APPEARANCE: Well developed, well nourished, in no acute distress. SKIN: Inspection of the skin reveals no rashes, ulcerations or petechiae. HEENT: Normocephalic atraumatic, extraocular muscles are intact, oropharynx is clear and mucous membranes are moist, neck is supple without adenopathy NECK: Supple and symmetric. There was no thyroid enlargement, and no tenderness, or masses were felt. CHEST: Normal AP diameter and normal contour without any kyphoscoliosis. LUNGS: Auscultation of the lungs revealed no wheezes, rhonchi, or rales. CARDIOVASCULAR: There was a regular rate and rhythm without any murmurs, gallops, rubs. Peripheral pulses were 2+ and symmetric. ABDOMEN: Soft and nontender with normal bowel sounds. No ascites was noted. MUSCULOSKELETAL: There was no tenderness or effusions noted. Muscle strength and tone were normal. EXTREMITIES: No cyanosis, clubbing or edema. NEUROLOGIC: Alert and oriented x 3. Normal affect. Gait was normal. Strength is +5/5 in the Upper Extremities and Lower Extremities Bilaterally. Sensation to touch was normal. Objective ECG Impression: Atrial fibrillation with rapid ventricular response, rate 177/no evidence of active ischemia Repeat evaluation showing normal sinus rhythm a rate of 82. Imaging CT scan - chest: Radiologist's impression: 1. No evidence pulmonary emboli. 2. Small focal area of groundglass opacity with more focal confluent consolidation in the left lower lobe. Consider viral pneumonitis/pneumonia. Labs Result Diagrams: 05/13/19 05:00 05/13/19 05:00 Labs: Laboratory Results - last 24 hr 05/13/19 05/13/19 05/13/19 05:00 05:00 05:00 WBC 10.7 RBC 5.08 Hgb 15.7 Hct 46.6 H MCV 91.6 MCH 30.8 MCHC 33.6 RDW 13.0 Plt Count 221 Neut % (Auto) 70.4 Lymph % (Auto) 18.9 L [place] % (Auto) 9.6 Eos % (Auto) 0.7 L Baso % (Auto) 0.4 Neut # (Auto) 7600 H Lymph # (Auto) 2000 [place] # (Auto) 1000 H Eos # (Auto) 100 Baso # (Auto) 0 PT 13.2 H INR 1.1 APTT 32 Sodium 133 L Potassium 3.9 Chloride 96 L Carbon Dioxide 28 BUN 11 Creatinine 0.65 Estimated GFR > 60.0 BUN/Creatinine Ratio 16.9 Glucose 129 H Calcium 9.4 Troponin I NT-Pro-B Natriuret Pep TSH Urine RBC Urine WBC Ur Squamous Epith Cells Urine Bacteria Ur Culture Indicated? Chlamy pneumoniae PCR Adenovirus (PCR) B.parapertussis DNA PCR Coronavirus OC43 (PCR) Coronavirus HKU1 (PCR) Coronavirus 229E (PCR) Coronavirus NL63 (PCR) Human Metapneumovir PCR Influenza Type A (PCR) Influenza Type B (PCR) M. pneumoniae (PCR) Parainfluenza 1 (PCR) Parainfluenza 2 (PCR) Parainfluenza 3 (PCR) Parainfluenza 4 (PCR) RSV (PCR) Entero/Rhino (PCR) 05/13/19 05/13/19 05/13/19 05:00 05:00 05:00 WBC RBC Hgb Hct MCV MCH MCHC RDW Plt Count Neut % (Auto) Lymph % (Auto) [place] % (Auto) Eos % (Auto) Baso % (Auto) Neut # (Auto) Lymph # (Auto) [place] # (Auto) Eos # (Auto) Baso # (Auto) PT INR APTT Sodium Potassium Chloride Carbon Dioxide BUN Creatinine Estimated GFR BUN/Creatinine Ratio Glucose Calcium Troponin I < 0.012 NT-Pro-B Natriuret Pep 327 H TSH 2.29 Urine RBC Urine WBC Ur Squamous Epith Cells Urine Bacteria Ur Culture Indicated? Chlamy pneumoniae PCR Adenovirus (PCR) B.parapertussis DNA PCR Coronavirus OC43 (PCR) Coronavirus HKU1 (PCR) Coronavirus 229E (PCR) Coronavirus NL63 (PCR) Human Metapneumovir PCR Influenza Type A (PCR) Influenza Type B (PCR) M. pneumoniae (PCR) Parainfluenza 1 (PCR) Parainfluenza 2 (PCR) Parainfluenza 3 (PCR) Parainfluenza 4 (PCR) RSV (PCR) Entero/Rhino (PCR) 05/13/19 05/13/19 06:25 06:32 WBC RBC Hgb Hct MCV MCH MCHC RDW Plt Count Neut % (Auto) Lymph % (Auto) [place] % (Auto) Eos % (Auto) Baso % (Auto) Neut # (Auto) Lymph # (Auto) [place] # (Auto) Eos # (Auto) Baso # (Auto) PT INR APTT Sodium Potassium Chloride Carbon Dioxide BUN Creatinine Estimated GFR BUN/Creatinine Ratio Glucose Calcium Troponin I NT-Pro-B Natriuret Pep TSH Urine RBC 0-1/hpf Urine WBC None seen Ur Squamous Epith Cells 0-1 /hpf Urine Bacteria Many (>30) H Ur Culture Indicated? Cult not indicated Chlamy pneumoniae PCR Not detected Adenovirus (PCR) Not detected B.parapertussis DNA PCR Not detected Coronavirus OC43 (PCR) Not detected Coronavirus HKU1 (PCR) Not detected Coronavirus 229E (PCR) Not detected Coronavirus NL63 (PCR) Not detected Human Metapneumovir PCR Detected H Influenza Type A (PCR) Not detected Influenza Type B (PCR) Not detected M. pneumoniae (PCR) Not detected Parainfluenza 1 (PCR) Not detected Parainfluenza 2 (PCR) Not detected Parainfluenza 3 (PCR) Not detected Parainfluenza 4 (PCR) Not detected RSV (PCR) Not detected Entero/Rhino (PCR) Not detected Assessment & Plan Assessment & Plan narrative: Rebecca Funes Is a 59-year-old female with past medical history of hypothyroidism and hypertension who presented to the e mergency room this morning with palpitations, and is admitted under observation status for atrial fibrillation with rapid ventricular response. She has converted back to normal sinus rhythm after or metoprolol, but she remains on a diltiazem drip at this time. If she is able to be weaned off of diltiazem drip in continues in sinus rhythm she can be discharged home. She was given anticoagulation in the emergency room and will continue on apixaban. 1. Atrial fibrillation with rapid ventricular response, likely acute onset, present on admission -patient presented in AFib with RVR with a rate of 177. Cardioversion was attempted x3, but returned to sinus rhythm for only 10 seconds and then switch back to atrial fibrillation. She has converted now to sinus rhythm after oral metoprolol, but remains on diltiazem drip. If she is able to be weaned from her diltiazem drip she may be discharged home. -TTE has been performed and results are pending -initial troponin negative, and no active chest pain, no active signs of ischemia on EKG. -TSH is unremarkable -may be related to active infection, dehydration, and pneumonia seen on CT scan. -will continue IV fluids at this time -continue metoprolol 25 mg b.i.d. -continue apixaban 5 mg b.i.d. 2. Pneumonia, acute, present on admission -likely viral in etiology given positive respiratory panel for human metapneumovirus -continue droplet precautions -will check procalcitonin. If elevated will consider continuing antibiotics. She was given a dose of Levaquin in the emergency room. Given QTC prolongation will avoid Levaquin going forward. 3. Hypertension, chronic, stable -will continue home lisinopril, hold amlodipine at this time while titrating her beta-shin. -medication adjustments depending on results of her echocardiogram will be needed 4. Hypothyroidism, chronic, stable -TSH this admission is unremarkable -continue patient's home dosing. Dispo: Admitted under observation status as her stay is not expected to exceed 2 midnights Code: Full, elects her surrogate decision maker as her DVT: Given rivaroxaban in the emergency room, will continue Eliquis starting this evening given her insurance formulary.
[2019-05-13 12:26] LABS: Procalcitonin < 0.05 ng/mL (<0.5)
--- NOTE | 2019-05-13 14:17 | PM.DS.1 ---
History of Present Illness History of Present Illness Date Patient Seen: 05/13/19 Time Patient Seen: 14:17 Chief complaint: feels like heart is out of rythym Narrative: Rebecca Funes Is a 59-year-old female with past medical history of hypothyroidism and hypertension who presented to the emergency room this morning with palpitations. She states for the past couple of days she has had a runny nose and cough. She is not felt any fevers or chills. She did note some epigastric burning last night, but no noted chest pain or palpitations at that time. She woke up at around 4:00 a.m. this morning and felt very sweaty, with a headache, and felt her heart pounding and beating very fast. She decided to come the emergency room room at that time. She denied any chest pain this morning, and she did not feel short of breath at all. She denies any recent chest pains, chest pressure, dyspnea on exertion, orthopnea, lower extremity edema. She denies any prior heart issues, but does state her entire family has atrial fibrillation. In the emergency room, patient presented with tachycardia, AFib with RVR with a rate of 177 on her initial EKG. She was not hypotensive. ER attempted cardioversion x3, each cardioversion was successful but she returned back into atrial fibrillation after approximately 10 seconds each time. Case was discussed with Dr. Rizvi who recommended an echocardiogram and further investigation as to the cause of her atrial fibrillation. CT angiogram performed of her chest did not show any pulmonary embolism but did show a possible left lower lobe pneumonia. Initial lab evaluations were unremarkable except for mild hyponatremia at 133, proBNP of 327. TSH was unremarkable at 2.29. UA was not remarkable for evidence of infection. Her viral panel did come back positive for human metapneumovirus. Patient was started on a Cardizem drip which was minimally effective, she was then given IV metoprolol which improved her rate. Patient was also given anticoagulation. After given 25 mg of oral metoprolol, patient returned into sinus rhythm with a rate in the 80s. She is still on a diltiazem drip at this time, but will try and titrate off. If she remains controlled, and echo was performed, she may be able to be discharged home later today. She is admitted under observation status at this time. Discharge Providers Provider Date of admission: 05/13/19 08:44 Discharge Date: 05/13/19 Primary care physician: Sd Solano MD Discharge provider: Chandler Prado DO Summary Hospital Course Discharge Diagnosis: Please see hospital course by problem list below Hospital Course: Rebecca Funes Is a 59-year-old female with past medical history of hypothyroidism and hypertension who presented to the emergency room this morning with palpitations, and is admitted under observation status for atrial fibrillation with rapid ventricular response. She has converted back to normal sinus rhythm after oral metoprolol. She was weaned off of diltiazem drip and remained in sinus rhythm. She was given anticoagulation in the emergency room and will continue on apixaban at discharge. 1. Atrial fibrillation with rapid ventricular response, likely acute onset, present on admission -patient presented in AFib with RVR with a rate of 177. Cardioversion was attempted x3, but returned to sinus rhythm for only 10 seconds and then switch back to atrial fibrillation. She has converted now to sinus rhythm after oral metoprolol. She will continue 25 mg BID. Follow up further as an outpatient. -TTE was performed and showed a normal EF without atrial dilatation. -initial troponin negative, and no active chest pain, no active signs of ischemia on EKG. -TSH was unremarkable -may be related to active infection, dehydration, and pneumonia seen on CT scan. -continue metoprolol 25 mg b.i.d. -continue apixaban 5 mg b.i.d. 2. Viral Pneumonia, acute, present on admission -likely viral in etiology given positive respiratory panel for human metapneumovirus -continue droplet precautions -Given levaquin in the ER. Procalcitonin was checked and was negative. No further antibiotics required. 3. Hypertension, chronic, stable -will continue home lisinopril, hold amlodipine at this time while titrating her beta-shin. -medication adjustments depending on results of her echocardiogram will be needed 4. Hypothyroidism, chronic, stable -TSH this admission is unremarkable -continue patient's home dosing. patient was discharged home on the same day of admission. Exam Vital Signs (past 8 hours): - 05/13/19 06:41 05/13/19 06:50 05/13/19 07:00 Temperature Pulse Rate 163 H 157 H 167 H Respiratory Rate 16 18 20 Blood Pressure Blood Pressure [Left Arm] 145/95 H 167/67 H 136/83 Pulse Oximetry 97 96 96 05/13/19 07:30 05/13/19 07:43 05/13/19 09:05 Temperature Pulse Rate 143 H 128 H 154 H Respiratory Rate 12 16 Blood Pressure 156/98 H Blood Pressure [Left Arm] 119/103 H 132/89 Pulse Oximetry 96 96 05/13/19 09:16 05/13/19 10:16 05/13/19 10:31 Temperature Pulse Rate 152 H 82 83 Respiratory Rate 16 16 Blood Pressure 133/67 Blood Pressure [Left Arm] 133/55 L 133/67 Pulse Oximetry 98 99 05/13/19 11:07 05/13/19 12:15 Temperature 99.5 F Pulse Rate 78 78 Respiratory Rate 18 18 Blood Pressure 135/65 Blood Pressure [Left Arm] Pulse Oximetry 98 96 Oxygen Delivery Method Room Air Oxygen Flow Rate 0 Narrative Exam Narrative: GENERAL APPEARANCE: Well developed, well nourished, in no acute distress. SKIN: Inspection of the skin reveals no rashes, ulcerations or petechiae. HEENT: Normocephalic atraumatic, extraocular muscles are intact, oropharynx is clear and mucous membranes are moist, neck is supple without adenopathy NECK: Supple and symmetric. There was no thyroid enlargement, and no tenderness, or masses were felt. CHEST: Normal AP diameter and normal contour without any kyphoscoliosis. LUNGS: Auscultation of the lungs revealed no wheezes, rhonchi, or rales. CARDIOVASCULAR: There was a regular rate and rhythm without any murmurs, gallops, rubs. Peripheral pulses were 2+ and symmetric. ABDOMEN: Soft and nontender with normal bowel sounds. No ascites was noted. MUSCULOSKELETAL: There was no tenderness or effusions noted. Muscle strength and tone were normal. EXTREMITIES: No cyanosis, clubbing or edema. NEUROLOGIC: Alert and oriented x 3. Normal affect. Gait was normal. Strength is +5/5 in the Upper Extremities and Lower Extremities Bilaterally. Sensation to touch was normal. Objective Labs Result Diagrams: 05/13/19 05:00 05/13/19 05:00 Labs: Laboratory Results - last 24 hr 05/13/19 05/13/19 05/13/19 05:00 05:00 05:00 WBC 10.7 RBC 5.08 Hgb 15.7 Hct 46.6 H MCV 91.6 MCH 30.8 MCHC 33.6 RDW 13.0 Plt Count 221 Neut % (Auto) 70.4 Lymph % (Auto) 18.9 L [place] % (Auto) 9.6 Eos % (Auto) 0.7 L Baso % (Auto) 0.4 Neut # (Auto) 7600 H Lymph # (Auto) 2000 [place] # (Auto) 1000 H Eos # (Auto) 100 Baso # (Auto) 0 PT 13.2 H INR 1.1 APTT 32 Sodium 133 L Potassium 3.9 Chloride 96 L Carbon Dioxide 28 BUN 11 Creatinine 0.65 Estimated GFR > 60.0 BUN/Creatinine Ratio 16.9 Glucose 129 H Calcium 9.4 Troponin I NT-Pro-B Natriuret Pep Procalcitonin TSH Urine RBC Urine WBC Ur Squamous Epith Cells Urine Bacteria Ur Culture Indicated? Chlamy pneumoniae PCR Adenovirus (PCR) B.parapertussis DNA PCR Coronavirus OC43 (PCR) Coronavirus HKU1 (PCR) Coronavirus 229E (PCR) Coronavirus NL63 (PCR) Human Metapneumovir PCR Influenza Type A (PCR) Influenza Type B (PCR) M. pneumoniae (PCR) Parainfluenza 1 (PCR) Parainfluenza 2 (PCR) Parainfluenza 3 (PCR) Parainfluenza 4 (PCR) RSV (PCR) Entero/Rhino (PCR) 05/13/19 05/13/19 05/13/19 05:00 05:00 05:00 WBC RBC Hgb Hct MCV MCH MCHC RDW Plt Count Neut % (Auto) Lymph % (Auto) [place] % (Auto) Eos % (Auto) Baso % (Auto) Neut # (Auto) Lymph # (Auto) [place] # (Auto) Eos # (Auto) Baso # (Auto) PT INR APTT Sodium Potassium Chloride Carbon Dioxide BUN Creatinine Estimated GFR BUN/Creatinine Ratio Glucose Calcium Troponin I < 0.012 NT-Pro-B Natriuret Pep 327 H Procalcitonin TSH 2.29 Urine RBC Urine WBC Ur Squamous Epith Cells Urine Bacteria Ur Culture Indicated? Chlamy pneumoniae PCR Adenovirus (PCR) B.parapertussis DNA PCR Coronavirus OC43 (PCR) Coronavirus HKU1 (PCR) Coronavirus 229E (PCR) Coronavirus NL63 (PCR) Human Metapneumovir PCR Influenza Type A (PCR) Influenza Type B (PCR) M. pneumoniae (PCR) Parainfluenza 1 (PCR) Parainfluenza 2 (PCR) Parainfluenza 3 (PCR) Parainfluenza 4 (PCR) RSV (PCR) Entero/Rhino (PCR) 05/13/19 05/13/19 05/13/19 05:00 06:25 06:32 WBC RBC Hgb Hct MCV MCH MCHC RDW Plt Count Neut % (Auto) Lymph % (Auto) [place] % (Auto) Eos % (Auto) Baso % (Auto) Neut # (Auto) Lymph # (Auto) [place] # (Auto) Eos # (Auto) Baso # (Auto) PT INR APTT Sodium Potassium Chloride Carbon Dioxide BUN Creatinine Estimated GFR BUN/Creatinine Ratio Glucose Calcium Troponin I NT-Pro-B Natriuret Pep Procalcitonin < 0.05 TSH Urine RBC 0-1/hpf Urine WBC None seen Ur Squamous Epith Cells 0-1 /hpf Urine Bacteria Many (>30) H Ur Culture Indicated? Cult not indicated Chlamy pneumoniae PCR Not detected Adenovirus (PCR) Not detected B.parapertussis DNA PCR Not detected Coronavirus OC43 (PCR) Not detected Coronavirus HKU1 (PCR) Not detected Coronavirus 229E (PCR) Not detected Coronavirus NL63 (PCR) Not detected Human Metapneumovir PCR Detected H Influenza Type A (PCR) Not detected Influenza Type B (PCR) Not detected M. pneumoniae (PCR) Not detected Parainfluenza 1 (PCR) Not detected Parainfluenza 2 (PCR) Not detected Parainfluenza 3 (PCR) Not detected Parainfluenza 4 (PCR) Not detected RSV (PCR) Not detected Entero/Rhino (PCR) Not detected Discharge Plan Discharge Plan Patient Disposition: Home Discharge comment: You were admitted to the hospital briefly for atrial fibrillation with rapid ventricular response. Your started on a medication to control your heart rate, and your remained in normal sinus rhythm. You had an echocardiogram which was unremarkable. You were also started on a blood thinner. This may be in response to your viral infection, however you should follow-up with a professional engineer for further management as an outpatient. Discharge orders & Medications Prescriptions: New Eliquis 5 mg Tablet 5 mg PO BID 30 Days Qty: 60 RF: 0 benzonatate [Tessalon Perles] 100 mg capsule 100 mg PO BID PRN (Reason: cough) 7 Days Qty: 14 RF: 0 guaifenesin 100 mg/5 mL liquid 200 mg PO Q4H PRN (Reason: cough) 7 Days Qty: 10 RF: 0 Continued lisinopril 20 mg tablet 20 mg PO QDAY Qty: 90 RF: 1 Discontinued amlodipine 5 mg tablet 5 mg PO DAILY Qty: 90 RF: 1 No Action thyroid (pork) [[place] Thyroid] 90 mg tablet 75 mg PO QDAY Qty: 0 RF: 0 diltiazem HCl [Cardizem CD] 180 mg capsule,extended release 24hr 180 mg PO DAILY Qty: 30 RF: 0 promethazine-codeine 6.25-10 mg/5 mL syrup 5 ml PO Q4-6H PRN (Reason: cough) Qty: 473 RF: 0 Follow up/Referrals: Sd Solano MD [Primary Care Provider] - Visit Report/Discharge Packet Visit Report Forms: Patient Portal/API, Stroke Signs & Symptoms Discharge Data Primary Care Provider: Sd Solano Attending Provider: Chandler Prado Admit Date/Time: 05/13/19 08:44 Discharges patient from system. Discharge Date/Time: 05/13/19 15:07
--- NOTE | 2019-05-13 15:05 | PC.NURSE ---
pt admitted from ed with + metapnuemo-virus and afib rvr - on dilt gtt she converted just prior to coming to icu- weaned off gtt medicated with po metoprolol- and started eliquis- echo completed and reviewed- discharge to home at this time- reviewed rx and jfollow up plan- discharged at this time
== END 2019-05-13 15:07 | disposition home or self-care (01) ==
LOC: ED 08:25 → ICU 08:46
PROVIDERS: Admitting Provider Internal Medicine; Emergency Provider Emergency Medicine; PCP Student in an Organized Health Care Education/Training Program; Visit Provider Internal Medicine
DX: I48.91 Unspecified atrial fibrillation (principal); R00.2 Palpitations; I10 Essential (primary) hypertension; E03.9 Hypothyroidism, unspecified; M35.00 Sjogren syndrome, unspecified; J12.3 Human metapneumovirus pneumonia; E86.0 Dehydration
CPT/HCPCS: 36415; 71275; 80048; 81003; 81015; 83880; 84145; 84443; 84484; 85025; 85610; 85730; 87633; 92960; 93005; 93306; 94770; 96361; 96365; 96366; 96368; 96375; 99285; 99291; 99292; G0378; J1956; J2704; J3010; Q9967

== ENCOUNTER 2019-05-15 08:18 | Emergency (ER) | payer OTHER, SELFPAY ==
[2019-05-13 11:49] VITALS: BMI 23.3
[2019-05-15 08:30] VITALS: BP 191/99; PULSE 86; RESP 20; TEMP 37; O2SAT 96
[2019-05-15 08:46] VITALS: BP 154/92; PULSE 77; RESP 16; O2SAT 98
--- NOTE | 2019-05-15 08:59 | ED_ITS ---
HPI - Arrhythmia/Palpitations General Chief Complaint: Arrhythmia/Palpitations Stated Complaint: Heart afib condition Time Seen by Provider: 05/15/19 08:20 Source: patient Mode of arrival: Ambulatory Limitations: no limitations History of Present Illness HPI narrative: 59-year-old female nonsmoker with history of hypertension and newly diagnosed paroxysmal AFib on Eliquis presents with a chief complaint of an episode of irregular heart rhythm or palpitations this morning which lasted approximately 1 hour. She denies associated symptoms such as chest pain or shortness of breath and her symptoms resolved prior to her arrival to the emergency department. She is not dizzy nor weak or lightheaded. She was recently admitted for a viral pneumonia and states that her AFib this morning started after a coughing spell. She denies any fever or chill, travel or exposure to persons known to have COVID-19 MD complaint: rapid heart beat and skipped beats Onset (ago): hour(s) Duration: now resolved Severity: mild Context: occurred during rest Arrhythmia history: atrial fibrillation Associated symptoms: denies other symptoms Related Data Home Medications Medication Instructions Recorded Confirmed thyroid (pork) [[place] Thyroid] 90 mg PO QDAY #0 06/17/16 08/29/18 Previous Rx's Medication Instructions Recorded lisinopril 20 mg tablet 20 mg PO QDAY #90 tab 08/29/18 apixaban [Eliquis] 5 mg PO BID 30 Days #60 tab 05/13/19 benzonatate [Tessalon Perles] 100 mg PO BID PRN 7 Days #14 cap 05/13/19 guaifenesin 200 mg PO Q4H PRN 7 Days #10 ml 05/13/19 metoprolol succinate 25 mg PO BID 30 Days #60 tab 05/13/19 promethazine-codeine 5 ml PO Q4-6H PRN #473 ml 05/15/19 Allergies Allergy/AdvReac Type Severity Reaction Status Date / Time Sulfa (Sulfonamide Allergy Unknown Verified 05/15/19 08:33 Antibiotics) [SULFA (SULFONAMIDE ANTIBIOTICS)] hydrochlorothiazide AdvReac Verified 05/15/19 08:33 Review of Systems Constitutional Constitutional: Denies chills, Denies fatigue, Denies fever(s), Denies frequent falls, Denies lethargy and Denies weakness Eyes Eyes: Denies change in vision, Denies eye discharge, Denies irritation and Denies loss of vision ENT Ears, Nose, Mouth, and Throat: Denies change in voice, Denies dizziness, Denies neck pain, Denies sore throat and Denies throat swelling Cardiovascular Cardiovascular: Denies chest pain, Reports irregular heart rhythm, Denies lightheadedness, Reports palpitations, Denies dyspnea, Denies dyspnea on exertion and Denies orthopnea Respiratory Respiratory: Reports cough, Denies dyspnea, Denies dyspnea on exertion and Denies wheezing Gastrointestinal Gastrointestinal: Denies abdominal pain, Denies change in bowel habits, Denies diarrhea, Denies nausea and Denies vomiting Genitourinary Genitourinary: Denies hematuria, Denies flank pain, Denies urinary incontinence and Denies urinary urgency Musculoskeletal Musculoskeletal: Denies back pain, Denies muscle weakness, Denies neck pain, Denies numbness and Denies tingling Integumentary/Breasts Skin/Breast: Denies pruritus, Denies erythema, Denies rash and Denies wounds Neurologic Neurologic: Denies behavioral changes, Denies confusion, Denies dizziness, Denies frequent falls, Denies loss of vision, Denies numbness, Denies tingling and Denies weakness Psychiatric Psychiatric: Denies anxiety, Denies behavioral changes, Denies confusion, Denies depression, Denies homicidal ideation and Denies suicidal ideation Endocrine Endocrine: Denies fatigue, Denies flushing and Reports palpitations Hematologic/Lymphatic Hematologic/Lymphatic: Denies easy bruising Allergic/Immunologic Allergic/Immunologic: Denies urticaria, Denies throat swelling and Denies wheezing Patient History Medical History Chicken pox (Resolved) Headache (Chronic) Hypertension (Chronic) Hypothyroidism (Chronic) Measles (Resolved) Mumps (Resolved) Osteopenia (Chronic) Sjogren's syndrome (Chronic) Surgical History Anesthesia (Resolved) History of appendectomy (Resolved) History of foot surgery (Resolved) History of hysterectomy (Resolved) No history of previous surgery (Acute) Family History Father Hyperlipidemia Hypertension Mother Hypertension Hyperlipidemia Brother Hypertension Sister Hypertension History of heart disease Social History household members: significant other Smoking Status: Never smoker alcohol intake: current Smoking Status: Never smoker alcohol intake frequency: 0-2 drinks per day Substance Use Type: does not use Exam Narrative Exam Narrative: GENERAL: [59] year old patient appears stated age. Well- nourished, well-developed patient, in mild distress. HEAD: Atraumatic. Normocephalic. EYES: Pupils equal round and reactive. Extraocular motions intact. No scleral icterus. No injection or drainage. ENT: Nose without bleeding, purulent drainage. Clear postnasal drip Throat without erythema, tonsillar hypertrophy or exudate. Airway patent. NECK: Trachea midline. Non tender CARDIOVASCULAR: Regular rate and rhythm without murmurs, gallops, or rubs. RESPIRATORY: Clear to auscultation. Breath sounds equal bilaterally. No wheezes, rales, or rhonchi. Occasional dry hacking cough GASTROINTESTINAL: Abdomen soft, non-tender, nondistended. EXTREMITIES: No edema or joint tenderness. BACK: Nontender without deformity or crepitance. No flank tenderness. NEURO: AOx3. SKIN: No rash or erythema of visible areas Initial Vital Signs Initial Vital Signs: Vital Signs Temperature 98.6 F 05/15/19 08:30 Pulse Rate 86 05/15/19 08:30 Respiratory Rate 20 05/15/19 08:30 Blood Pressure 191/99 H 05/15/19 08:30 Pulse Oximetry 96 05/15/19 08:30 Course Orders Ordered: ED Orders 05/15/19 EKG-12 Lead Stat Vital Signs Vital signs: Vital Signs - 8 hr 05/15/19 08:30 05/15/19 08:46 Temperature 98.6 F Pulse Rate 86 77 Respiratory Rate 20 16 Blood Pressure 191/99 H Blood Pressure [Right Arm] 154/92 H Pulse Oximetry 96 98 MDM - Arrhythmia/Palpitations ECG Data Interpretation: EKG is normal sinus rhythm rate [83] and free of any signs of ischemia or ectopy. No ST segmental elevation or depression. No T wave inversions MDM Narrative Medical decision making narrative: Patient had what sounds like an episode of AFib which had resolved. She has no symptoms and is currently in a normal sinus rhythm. We discussed the utility of lab work and sure the opinion that that is unlikely to be beneficial at this point in time. Patient given extensive return precautions and has had her questions answered to her apparent satisfaction Discharge Plan Departure Patient Disposition: Home Clinical Impression: Atrial fibrillation Qualifiers: Atrial fibrillation type: paroxysmal Qualified Code(s): I48.0 - Paroxysmal atrial fibrillation Discharge Date/Time: 05/15/19 09:05 Instructions: DI for Atrial Fibrillation Activity Restrictions/Additional Instructions: *You have been diagnosed with [paroxysmal atrial fibrillation, resolved] *What to do: *Take medications as directed *Follow up with your primary care provider in 2-3 days, call for an appoin tment. Let them know you were seen in the Emergency Department and that we ask that you be seen in follow up *Return to ER if you should have any new, worsening or concerning symptoms Prescriptions: New promethazine-codeine 6.25-10 mg/5 mL syrup 5 ml PO Q4-6H PRN (Reason: cough) Qty: 473 RF: 0 No Action thyroid (pork) [[place] Thyroid] 90 MG tablet 90 mg PO QDAY Qty: 0 RF: 0 lisinopril 20 mg tablet 20 mg PO QDAY Qty: 90 RF: 1 Eliquis 5 mg Tablet 5 mg PO BID 30 Days Qty: 60 RF: 0 metoprolol succinate 25 mg tablet extended release 24 hr 25 mg PO BID 30 Days Qty: 60 RF: 0 benzonatate [Tessalon Perles] 100 mg capsule 100 mg PO BID PRN (Reason: cough) 7 Days Qty: 14 RF: 0 guaifenesin 100 mg/5 mL liquid 200 mg PO Q4H PRN (Reason: cough) 7 Days Qty: 10 RF: 0 Referrals: Sd Solano MD [Primary Care Provider] -
== END 2019-05-15 09:05 | disposition home or self-care (01) ==
LOC: ED 09:01
PROVIDERS: Emergency Provider Emergency Medicine; PCP Student in an Organized Health Care Education/Training Program
DX: I48.0 Paroxysmal atrial fibrillation (principal); Z79.01 Long term (current) use of anticoagulants; I10 Essential (primary) hypertension
CPT/HCPCS: 93005; 99283

== ENCOUNTER → 2019-10-08 14:39 | Outpatient (CLI) | payer OTHER, SELFPAY ==
[2019-10-08 08:25] VITALS: BMI 23.3
[2019-10-08 15:20] LABS: Add Manual Diff / Slide Review NO; Basophils Absolute Auto 0 /uL (0-100); Basophils Percent Auto 0.6 % (0-2); Eosinophils Absolute Auto 100 /uL (0-450); Eosinophils Percent Auto 0.9 % (2-4); Hematocrit 40.8 % (36-46); Hemoglobin 14.4 g/dL (12.0-16.0); Lymphocytes Absolute Auto 2500 /uL (1100-4500); Lymphocytes Percent Auto 32.1 % (25-40); Mean Corpuscular HGB Conc 35.4 % (30-36); Mean Corpuscular Hemoglobin 31.9 PG (26-34); Mean Corpuscular Volume 90.2 fL (80-100); Monocytes Absolute Auto 700 /uL (0-900); Monocytes Percent Auto 8.4 % (3-14); Neutrophils Absolute Auto 4500 /uL (1500-7000); Platelet Count 282 X10^3/uL (150-400); Red Blood Cell Count 4.52 X10^6/uL (4.0-5.2); White Blood Cell Count 7.7 X10^3/uL (4.5-11.0)
[2019-10-08 15:33] LABS: Appearance Urine UA CLEAR; Bilirubin Urine UA NEGATIVE (NEGATIVE); Color Urine UA YELLOW; Glucose Urine UA NEGATIVE (Negative); Ketones Urine UA TRACE (NEGATIVE); Leukocyte Esterase Urine UA NEGATIVE (NEGATIVE); Nitrite Urine UA POSITIVE (Negative); Occult Blood Urine UA 3+ (Negative); Protein Urine UA NEGATIVE (Negative); Specific Gravity Urine UA <=1.005 (1.000-1.035); Urobilinogen Urine UA 0.2 E.U./dL (0.2)
[2019-10-08 15:49] LABS: Bacteria Urine Many (>30); Culture Indicated Urine Specimen Cultured; RBC Urine 1-5/HPF (0-5/HPF); WBC Urine 5-10/HPF (0-5/HPF)
[2019-10-08 16:30] LABS: Alanine Aminotransferase 18 IU/L (<35); Albumin 4.8 g/dL (3.5-5.0); Alkaline Phosphatase 97 U/L (38-126); Aspartate Aminotransferase 25 IU/L (14-36); BUN Creatinine Ratio 17.5 (6-22); Bilirubin Total 0.7 mg/dL (0.2-1.3); Blood Urea Nitrogen 11 mg/dL (7-17); Calcium 9.7 mg/dL (8.4-10.2); Carbon Dioxide 27 mmol/L (22-32); Chloride 88 mmol/L (98-107); Estimated Glomerular Filt Rate > 60.0 mL/min (>60); Globulin 2.4 g/dL (1.7-4.1); Glucose 101 mg/dL (80-110); HEMOLYSIS < 15 (0-50); Potassium 4.4 mmol/L (3.4-5.1); Sodium 125 mmol/L (137-145); Total Protein 7.2 g/dL (6.3-8.2)
[2019-10-08 17:01] LABS: TSH w/ Reflex to FT4 1.94 uIU/mL (0.47-4.68)
== END ==
PROVIDERS: PCP Student in an Organized Health Care Education/Training Program; Referring Provider Registered Nurse; Visit Provider Registered Nurse
DX: R53.83 Other fatigue (principal)
CPT/HCPCS: 36415; 80053; 81003; 81015; 84443; 85025; 87077; 87086; 87186

== ENCOUNTER → 2023-03-31 09:17 | Outpatient (CLI) | payer MEDICARE, OTHER, SELFPAY ==
[2019-10-08 08:25] VITALS: BMI 23.3
--- NOTE | 2023-03-31 09:21 | DI.ECHO.S_ITS ---
[facility]---------+ [facility] +---------+ : : [address] : : : : [id number] : : : : Phone: [phone]+ Echocardiogram Report + + :Name: RUTH CORDERO Study Date: 03/31/2023 Height: 66 in : :[facility] ReadingLocation: Weight: 145 lb : : Gender: Female BSA: 1.7 m2 : :: 1960 Age: 63 yrs BP: 154/99 mmHg: :Reason For Study: ASCENDING AORTA ENLARGEMENT : :Ordering Physician: MILES, : :MAYRA Performed By: Laura Manriquez : :Referring: MAYRA URBAN : + + Interpretation Summary 1) Normal left ventricular thickness, size, and systolic function (EF 60-65%). 2) Normal right ventricular size and function. 3) No significant valvular abnormalities. 4) Compared to the Echo done 05/13/2019, no significant change. Procedure: A two-dimensional transthoracic echocardiogram with color flow and Doppler was performed. The study quality was technically adequate. Comparison is made with the echocardiogram of 05/13/2019. The patient was in sinus rhythm with heart rates between 70-76 bpm during the exam. Left Ventricle: The left ventricle is normal in size and wall thickness. The ejection fraction is estimated to be 60-65%. There are no obvious focal wall motion abnormalities noted but poor endocardial definition reduces the sensitivity for the detection of such. Right Ventricle: The right ventricle is normal in size and function. Atria: The left atrium is moderately dilated. Right atrial size is normal. A patent foramen ovale is suspected. Mitral Valve: The mitral valve is normal in structure and function. There is mild mitral regurgitation. Aortic Valve: The aortic valve is trileaflet. The aortic valve opens well. There is no aortic valve stenosis. No aortic regurgitation is present. Tricuspid Valve: The tricuspid valve is normal in structure and function. There is mild tricuspid regurgitation. The right ventricular systolic pressure is estimated to be at least 27 mmHg based on an estimated right atrial pressure of 3 mm Hg. Pulmonic Valve: The pulmonic valve leaflets are thin and pliable; valve motion is normal. There is no pulmonic valvular regurgitation. Great Vessels: The aortic root is normal size. The ascending aorta is at the upper limits of normal in size. The IVC is dilated (diameter is greater than 2.1 cm) yet it collapses greater than 50% with a sniff. This suggests a right atrial pressure of 8 mm Hg. Pericardium/ Pleura There is no pericardial effusion. There is no pleural effusion. MMode/2D Measurements & Calculations LVIDd: 5.2 cm LVOT diam: 2.2 cm LVIDs: 3.4 cm Ao root diam: 2.8 cm FS: 34.4 % asc Aorta Diam: 3.6 cm IVSd: 0.88 cm Ao Arch Diam (Prox Trans): 2.6 cm LVPWd: 0.76 cm LV zaidi. diameter/BSA (cm/m^2): 3.0 LV sys. diameter/BSA (cm/m^2): 2.0 LA A2 area: 21.9 cm2 RA long axis: 4.7 cm LA A4 area: 16.4 cm2 RA area: 16.5 cm2 LA length (vol): 5.0 cm RA vol: 49.9 ml LA vol: 60.7 ml RA : 28.6 ml/m2 LA vol index: 34.8 ml/m2 IVC diam: 2.1 cm RVD1 (basal): 3.2 cm RVD2 (mid): 3.0 cm TAPSE: 2.0 cm Doppler Measurements & Calculations Ao V2 max: 136.6 cm/sec LVOT Max Maurizio: 87.2 cm/sec Ao V2 mean: 99.6 cm/sec LV V1 max P.0 mmHg Ao max P.5 mmHg LV V1 VTI: 19.3 cm Ao mean P.4 mmHg FREDERIC(I,D): 2.5 cm2 Ao V2 VTI: 28.8 cm FREDERIC(V,D): 2.3 cm2 sev ratio: 0.67 FREDERIC indexed to BSA (cm^2/m^2): 1.4 MV E max maurizio: 76.8 cm/sec TR max maurizio: 215.4 cm/sec MV A max maurizio: 53.8 cm/sec TR max P.6 mmHg MV E/A: 1.4 PA V2 max: 91.8 cm/sec Med Peak E' Maurizio: 6.7 cm/sec PA V2 mean: 62.4 cm/sec E/E' med: 11.4 PA mean P.7 mmHg Lat Peak E' Maurizio: 8.9 cm/sec PA pr(Accel): 27.6 mmHg E/E' lat: 8.7 E/e' average: 10.1 MV dec time: 0.23 sec SVLVOT): 71.2 ml Reading Physician:07:01 PM
== END ==
LOC: ECHO 09:19
PROVIDERS: PCP Family Medicine; Referring Provider Internal Medicine Cardiovascular Disease; Visit Provider Internal Medicine Cardiovascular Disease
DX: I77.89 Other specified disorders of arteries and arterioles (principal); I08.1 Rheumatic disorders of both mitral and tricuspid valves
CPT/HCPCS: 93306

== ENCOUNTER 2024-04-23 18:15 | Emergency (ER) | payer MEDICARE, OTHER, SELFPAY ==
[2019-10-08 08:25] VITALS: BMI 23.3
[2024-04-23 18:46] VITALS: BP 155/70; PULSE 100; RESP 17; TEMP 36.8; O2SAT 98; BMI 23.3
--- NOTE | 2024-04-23 18:51 | EKG_ITS ---
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
--- NOTE | 2024-04-23 18:51 | DI.RAD.S_ITS ---
PROCEDURE: XR CHEST 1V INDICATIONS: chest pain TECHNIQUE: One view of the chest was acquired. COMPARISON: CT, CT ANGIO CHEST PE PROTOCOL, 05/13/2019, 5:48. FINDINGS: Surgical changes and devices: None. Lungs and pleura: Minimal blunting of the left costophrenic angle. Mediastinum: Mediastinal contours appear normal. Heart size is normal. Bones and chest wall: No suspicious bony lesions. Overlying soft tissues appear unremarkable. IMPRESSION: Minimal left costophrenic angle blunting possibly related to minimal effusion versus scarring. Dictated by: Kisha Trujillo M.D. on 04/23/2024 at 19:30 Approved by: Kisha Trujillo M.D. on 04/23/2024 at 19:31
[2024-04-23 19:18] LABS: Add Manual Diff / Slide Review YES; Hematocrit 38.3 % (36-46); Hemoglobin 12.9 g/dL (12.0-16.0); Mean Corpuscular HGB Conc 33.8 % (30-36); Mean Corpuscular Hemoglobin 32.3 PG (26-34); Mean Corpuscular Volume 95.5 fL (80-100); Platelet Count 239 X10^3/uL (150-400); Red Blood Cell Count 4.01 X10^6/uL (4.0-5.2); Red Cell Distribution Width 13.3 % (11.6-14.8); White Blood Cell Count 14.1 X10^3/uL (4.5-11.0)
[2024-04-23 19:26] LABS: INR 1.3 (0.9-1.3); Prothrombin Time 14.6 SECONDS (9.4-12.5)
[2024-04-23 19:29] LABS: PTT Partial Thromboplastin Tim 31 SECONDS (25.1-36.5)
[2024-04-23 19:30] LABS: Alanine Aminotransferase 83 IU/L (<35); Albumin 3.8 g/dL (3.5-5.0); Albumin Globulin Ratio 1.2 (1.0-2.8); Alkaline Phosphatase 187 U/L (38-126); Aspartate Aminotransferase 60 IU/L (14-36); BUN Creatinine Ratio 17.9 (6-22); Bilirubin Total 0.6 mg/dL (0.2-1.3); Blood Urea Nitrogen 12 mg/dL (7-17); Calcium 9.2 mg/dL (8.4-10.2); Carbon Dioxide 27 mmol/L (22-32); Chloride 96 mmol/L (98-107); Creatine Kinase 24 U/L (30-135); Estimated Glomerular Filt Rate > 60 mL/min (>60); Globulin 3.2 g/dL (1.7-4.1); Glucose 129 mg/dL (80-110); HEMOLYSIS < 15 (0-50); Lipase 23 U/L (23-300); Magnesium 2.1 mg/dL (1.6-2.3); Potassium 3.8 mmol/L (3.4-5.1); Sodium 132 mmol/L (137-145)
[2024-04-23 19:32] LABS: Neutrophils Absolute Manual 9729 /uL (3000-5900); RBC Morphology Normal Morphology; Total Cells Counted 100
[2024-04-23 19:42] LABS: NT-proBNP (BNP-Adult 18+) 3320 pg/mL (<125); Troponin I < 0.012 ng/mL (0.01-0.034)
[2024-04-23] MEDS: ASPIRIN 81 MG CHEW TAB 324 MG PO (21:47)
--- NOTE | 2024-04-23 21:49 | PC.NURSE ---
Pt informed this nurse that she took her own home medication of 1 tab 20mg lisinopril PO and a 500mg tab tylenol. Dr. Selin staples
[2024-04-23 21:54] VITALS: PULSE 91; RESP 14; O2SAT 96
[2024-04-23 22:00] VITALS: BP 147/69; PULSE 88; RESP 21; O2SAT 96
[2024-04-23 22:30] VITALS: BP 162/72; PULSE 89; RESP 22; O2SAT 93
[2024-04-23 23:00] VITALS: BP 158/81; PULSE 95; RESP 23; O2SAT 94
--- NOTE | 2024-04-23 23:03 | ED_ITS ---
HPI - Arrhythmia/Palpitations General Chief Complaint: Arrhythmia/Palpitations Stated Complaint: tachycardia, hx Afib Time Seen by Provider: 04/23/24 23:03 Source: patient Mode of arrival: Ambulatory History of Present Illness HPI narrative: Patient is a 64-year-old female with a past medical history of paroxysmal AFib status post ablation, comes into the ED from home for evaluation of palpitations, states that she felt like her heart was racing. States that she will who has been feeling unwell since approximately Tuesday, but denies any fevers chills, states that she follows with Dr. Urban of cardiology who dates that if she ever has these symptoms to take ?break through diltiazem at 60 mg which she did take when she was having any symptoms, however she states that she is still feeling slight we are in her chest earlier today but does not have those sensations currently. She currently denies any headache visual disturbances chest pain shortness of breath fever chills nausea vomiting abdominal pain or any other GI/ symptoms time. Related Data Home Medications Medication Instructions Recorded Confirmed thyroid (pork) 90 mg tablet 75 mg PO QDAY #0 tabs 05/17/19 10/08/19 (Tyrone Thyroid) Previous Rx's Medication Instructions Recorded diltiazem HCl 240 mg capsule,24 240 mg PO DAILY #90 caps 10/03/19 hr,extended release metoprolol succinate 25 mg 12.5 mg (1/2 x 25 mg) PO DAILY #30 10/09/19 tablet,extended release 24 hr tabs lisinopril 10 mg tablet 10 mg PO BID #180 tabs 11/12/19 apixaban 5 mg tablet (Eliquis) 5 mg PO BID #180 tabs 12/06/19 furosemide 20 mg tablet (Lasix) 20 mg PO DAILY 2 weeks #14 tabs 04/23/24 Allergies Allergy/AdvReac Type Severity Reaction Status Date / Time Sulfa (Sulfonamide AdvReac Unknown Rash Verified 04/23/24 18:46 Antibiotics) [SULFA (SULFONAMIDE ANTIBIOTICS)] hydrochlorothiazide AdvReac Palpitation Verified 04/23/24 18:46 s Review of Systems Review of Systems Narrative: General: Denies fever, chills, weight loss HEENT: Denies headache, eye drainage, eye irritation, head trauma, sore throat, voice change Cardiovascular: Positive palpitations, Denies any chest pain shortness of breath, tachycardia Respiratory: Denies any shortness of breath, cough, wheeze, stridor GI/: Denies any abdominal pain, nausea, vomiting, diarrhea, bright red blood per rectum, melanotic stools, urinary frequency, urinary retention, dysuria, hematuria MSK: Denies any joint pain, muscle pains, swelling Skin: Denies any rashes, lesions, discoloration Neuro: Denies any headache, lightheadedness, dizziness, fainting, weakness Psych: Denies SI/HI Patient History Medical History (Updated 04/23/24 @ 23:55 by Chandler Jimenez DO) Sjogren's syndrome Headache Osteopenia Mumps Measles Chicken pox Hypothyroidism Hypertension Surgical History Anesthesia History of foot surgery History of appendectomy History of hysterectomy No history of previous surgery Family History Father Hyperlipidemia Hypertension Mother Hypertension Hyperlipidemia Brother Hypertension Sister Hypertension History of heart disease Social History household members: significant other Smoking Status: Never smoker alcohol intake: current Smoking Status: Never smoker alcohol intake frequency: 0-2 drinks per day Exam Narrative Exam Narrative: General: Cooperative, comfortable, well-developed, not in acute distress HEENT: Normocephalic, atraumatic, PERRLA, normal sclera, eyelids normal, Neck: Active full range of motion, atraumatic Chest: Normal to inspection, negative crepitus, no overlying erythema ecchymosis Respiratory: Normal respiratory effort, not in acute respiratory distress, clear to auscultation bilaterally negative cough, wheeze, tachypnea, rhonchi, rales Cardiology: Regular rate rhythm negative gallop, murmur, rubs GI/: Normal to inspection, soft, nonrigid, no tenderness to palpation, exam deferred MSK: Full range of active range of motion of all 4 extremities, atraumatic Skin: No rashes lesions noted Neuro: Alert awake oriented x3, moves all 4 extremities spontaneously, cranial nerves intact, able to answer all questions appropriately follows commands appropriately Psych: Cooperative, negative suicidal or homicidal ideations Initial Vital Signs Initial Vital Signs: Vital Signs Temperature 98.3 F 04/23/24 18:46 Pulse Rate 100 H 04/23/24 18:46 Respiratory Rate 17 04/23/24 18:46 Blood Pressure 155/70 H 04/23/24 18:46 Pulse Oximetry 98 04/23/24 18:46 Oxygen Delivery Method Room Air 04/23/24 18:46 Course Orders Ordered: ED Orders 04/23/24 18:51 XR chest 1V Stat EKG-12 Lead Stat 04/23/24 19:00 Complete Blood Count AUTO DIFF Stat Comprehensive Metabolic Panel Stat Lipase Stat Magnesium Stat NT-proBNP (BNP-Adult 18+) Stat PTT Partial Thromboplastin Zeke Stat Prothrombin Time INR Stat Troponin & CK Cardiac Panel Stat Discontinued Medications Aspirin (Aspirin 81 Mg Chew Tab) 324 mg PO NOW ONE Stop: 04/23/24 18:52 Last Admin: 04/23/24 21:47 Dose: 243 mg Documented By: DANYELLE Vital Signs Vital signs: Vital Signs - 8 hr 04/23/24 18:46 04/23/24 21:54 04/23/24 22:00 Temperature 98.3 F Pulse Rate 100 H 91 H 88 Respiratory Rate 17 14 21 Blood Pressure 155/70 H Pulse Oximetry 98 96 96 Oxygen Delivery Method Room Air Room Air 04/23/24 22:00 04/23/24 22:30 04/23/24 22:30 Temperature Pulse Rate 89 Respiratory Rate 22 Blood Pressure 147/69 H 162/72 H Pulse Oximetry 93 Oxygen Delivery Method Room Air MDM - Arrhythmia/Palpitations Differential Diagnosis Differential diagnosis: Likely palpitations, artial fibrillation, artial flutter and other (ACS, pneumonia, electrolyte abnormality,) Lab Data 04/23/24 19:00 04/23/24 19:00 Labs: Lab Results 04/23/24 Range/Units 19:00 WBC 14.1 H (4.5-11.0) X10^3/uL RBC 4.01 (4.0-5.2) X10^6/uL Hgb 12.9 (12.0-16.0) g/dL Hct 38.3 (36-46) % MCV 95.5 (80-100) fL MCH 32.3 (26-34) PG MCHC 33.8 (30-36) % RDW 13.3 (11.6-14.8) % Plt Count 239 (150-400) X10^3/uL Neut % (Auto) Not Reportable Lymph % (Auto) Not Reportable [place] % (Auto) Not Reportable Eos % (Auto) Not Reportable Baso % (Auto) Not Reportable Lymph # (Auto) Not Reportable [place] # (Auto) Not Reportable Baso # (Auto) Not Reportable Total Counted 100 Seg Neutrophils % 65.0 (38-70) % Band Neutrophils % 4.0 (3-7) % Lymphocytes % (Manual) 19.0 L (25-45) % Monocytes % (Manual) 12.0 H (2-11) % Neutrophils # (Manual) 9729 H (5233-7177) /uL RBC Morphology Normal morphology PT 14.6 H (9.4-12.5) SECONDS INR 1.3 (0.9-1.3) APTT 31 (25.1-36.5) SECONDS Sodium 132 L (137-145) mmol/L Potassium 3.8 (3.4-5.1) mmol/L Chloride 96 L (98-107) mmol/L Carbon Dioxide 27 (22-32) mmol/L BUN 12 (7-17) mg/dL Creatinine 0.67 (0.52-1.04) mg/dL Estimated GFR > 60 (>60) mL/min BUN/Creatinine Ratio 17.9 (6-22) Glucose 129 H (80-110) mg/dL Calcium 9.2 (8.4-10.2) mg/dL Magnesium 2.1 (1.6-2.3) mg/dL Total Bilirubin 0.6 (0.2-1.3) mg/dL AST 60 H (14-36) IU/L ALT 83 H (<35) IU/L Alkaline Phosphatase 187 H (38-126) U/L Total Creatine Kinase 24 L (30-135) U/L Troponin I < 0.012 (0.01-0.034) ng/mL NT-Pro-B Natriuret Pep 3320 H (<125) pg/mL Total Protein 7.0 (6.3-8.2) g/dL Albumin 3.8 (3.5-5.0) g/dL Globulin 3.2 (1.7-4.1) g/dL Albumin/Globulin Ratio 1.2 (1.0-2.8) Lipase 23 (23-300) U/L Imaging Data Chest x-ray: Radiologist's Impresson: [address] [id number] XRay Report Signed Patient: Rebecca Funes MR#: [id number] : 1960 Acct:[id number] Age/Sex: 64 / F Date of Service: 04/23/24 Loc: ED Accession Number: [id number] Procedure: XR chest 1V Ordering Provider: Chandler Jimenez D.O. PROCEDURE: XR CHEST 1V INDICATIONS: chest pain TECHNIQUE: One view of the chest was acquired. COMPARISON: CT, CT ANGIO CHEST PE PROTOCOL, 05/13/2019, 5:48. FINDINGS: Surgical changes and devices: None. Lungs and pleura: Minimal blunting of the left costophrenic angle. Mediastinum: Mediastinal contours appear normal. Heart size is normal. Bones and chest wall: No suspicious bony lesions. Overlying soft tissues appear unremarkable. IMPRESSION: Minimal left costophrenic angle blunting possibly related to minimal effusion versus scarring. ECG Data Interpretation: EKG interpreted ED physician sinus at 97 beats per minute PVC noted QTC [address] changes no STEMI MDM Narrative Medical decision making narrative: Patient is a 64-year-old female with a history of paroxysmal AFib status post ablation coming in for palpitations has been intermittent in nature for the past several days does follow up with Dr. Urban, of Cardiology who did prescribe patient breakthrough Cardizem 60 mg. She states that this has been working for her however she states that she does not like to be constantly taking this and therefore decided come into the ED for the airway stream. At time of evaluation patient denies any palpitation chest pain shortness breath fever chills nausea vomiting abdominal pain or any other GI/ symptoms. However she states that she is still feeling slight flu-like symptoms. Troponin negative EKG nonischemic Chem panel unremarkable however patient with slight elevation in BNP at 3320, chest x-ray with very trace pleural effusion patient not requiring supplemental oxygen, however given elevated BNP and chest x-ray showing trace pleural effusion will start patient on low-dose Lasix daily instructed to follow up with her medical technologist microbiology and PCP in an outpatient setting. Patient was given strict return precautions she verbalized understanding of this and agrees to being discharged home with outpatient follow up Discharge Plan Departure Patient Disposition: Home Clinical Impression: CHF (congestive heart failure) Instructions: DI for Heart Failure Activity Restrictions/Additional Instructions: Please follow up with your medical technologist microbiology Please read the discharge instructions sheet carefully and bring all papers to all doctor follow-up visits, as it may contain information that your doctor may want to see. Disease processes change and evolve, if your symptoms worsen or if you develop any new symptoms that are concerning to you please return for evaluation. Your evaluation today does not show any evidence of any life- threatening/serious illnesses requiring admission to the hospital or surgery. Please follow-up with your doctor for re-evaluation in approximately 1 day. Seek immediate medical attention for any worrisome symptoms. *If you do not have a primary care provider please contact the [facility] Resource line at [phone]. They will ask some questions about your medical history and help get you set up with a doctor in the community. Prescriptions: New furosemide [Lasix] 20 mg tablet 20 mg PO DAILY 14 Days Qty: 14 0RF No Action diltiazem HCl 240 mg capsule,extended release 24 hr 240 mg PO DAILY Qty: 90 1RF metoprolol succinate 25 mg tablet extended release 24 hr 12.5 mg PO DAILY Qty: 30 2RF Rx Instructions: 12.5mg (1/2) tab daily for 1 week, then up to 25mg daily lisinopril 10 mg tablet 10 mg PO BID Qty: 180 1RF Rx Instructions: PT NEEDS TO BE SEEN BY END OF THIS RX PRIOR TO ANY FUTURE FILLS. PLEASE CALL TO SCHED. FUTURE APPT. THANKS 11/12/19 Eliquis 5 mg tablet 5 mg PO BID Qty: 180 1RF Rx Instructions: pt will need to be seen before next renewal thyroid (pork) [Tyrone Thyroid] 90 mg tablet 75 mg PO QDAY Qty: 0 Referrals: Jessica Her MD [Primary Care Provider] - Stand Alone Forms: Patient Portal/API/Survey
[2024-04-23 23:59] VITALS: O2SAT 97
[2024-04-24] VITALS: BP 145/88; PULSE 92; O2SAT 97
== END 2024-04-24 00:20 | disposition home or self-care (01) ==
PROVIDERS: Emergency Provider Student in an Organized Health Care Education/Training Program; PCP Family Medicine
DX: I50.9 Heart failure, unspecified (principal); R07.9 Chest pain, unspecified
CPT/HCPCS: 71045; 80053; 82550; 83690; 83735; 83880; 84484; 85007; 85025; 85610; 85730; 93005; 99283; 99284

== ENCOUNTER 2024-04-29 06:28 | Emergency (ER) | payer MEDICARE, OTHER, SELFPAY ==
[2019-10-08 08:25] VITALS: BMI 23.3
[2024-04-29] VITALS (7 sets, daily range): BP systolic 134–147; BP diastolic 63–80; PULSE 88–104; RESP 17–25; TEMP 36.3; O2SAT 93–96; BMI 23.3
--- NOTE | 2024-04-29 06:31 | ED.ARRPALP ---
HPI - Arrhythmia/Palpitations <Chandler Jimenez, DO - Last Filed: 04/29/24 06:52> General Chief Complaint: Arrhythmia/Palpitations Stated Complaint: Woke up with poss atrial fib per watch-tachy Time Seen by Provider: 04/29/24 06:31 History of Present Illness HPI narrative: 64-year-old female with a past medical history of paroxysmal AFib status post ablation not on any anticoagulation comes into the ED from home for evaluation of palpitations, She states that she woke up at around 4:00 a.m. to take her normal morning medications and started noticing palpitations so she checked her heart monitor and it stated that she was in atrial fibrillation at 100 beats per minute. She states that at which point she did take her extra dose of breakthrough medication which is Cardizem 60 mg at 5:30 a.m. she states that symptoms did improve however given the fact that she is having intermittent bouts of atrial fibrillation decided come into the ED for further evaluation treatment. Patient was seen here previously for the same, at that time patient with trace pleural effusions on chest x-ray as well as mildly elevated BNP she did follow up with her hydraulic bull riveter operator (Dr. Urban) who started her on spironolactone for her elevated BNP. Has an appointment with him on the of this month. Patient also states that she has been having intermittent fevers nightly over the past several days. At time of evaluation patient no longer complaining of palpitations she has not having any chest pain shortness breath chills nausea vomiting abdominal pain or any other GI/ symptoms time. Related Data Home Medications Medication Instructions Recorded Confirmed thyroid (pork) 90 mg tablet 75 mg PO QDAY #0 tabs 05/17/19 10/08/19 ([facility]) Previous Rx's Medication Instructions Recorded diltiazem HCl 240 mg capsule,24 240 mg PO DAILY #90 caps 10/03/19 hr,extended release metoprolol succinate 25 mg 12.5 mg (1/2 x 25 mg) PO DAILY #30 10/09/19 tablet,extended release 24 hr tabs lisinopril 10 mg tablet 10 mg PO BID #180 tabs 11/12/19 apixaban 5 mg tablet (Eliquis) 5 mg PO BID #180 tabs 12/06/19 furosemide 20 mg tablet (Lasix) 20 mg PO DAILY 2 weeks #14 tabs 04/23/24 cephalexin 500 mg capsule 500 mg PO TID 7 days #21 caps 04/29/24 Allergies Allergy/AdvReac Type Severity Reaction Status Date / Time Sulfa (Sulfonamide AdvReac Unknown Rash Verified 04/23/24 18:46 Antibiotics) [SULFA (SULFONAMIDE ANTIBIOTICS)] hydrochlorothiazide AdvReac Palpitation Verified 04/23/24 18:46 s Review of Systems <Chandler Jimenez DO - Last Filed: 04/29/24 06:52> Review of Systems Narrative: General: Denies fever, chills, weight loss HEENT: Denies headache, eye drainage, eye irritation, head trauma, sore throat, voice change Cardiovascular: Positive palpitations, Denies any chest pain, shortness of breath, tachycardia Respiratory: Denies any shortness of breath, cough, wheeze, stridor GI/: Denies any abdominal pain, nausea, vomiting, diarrhea, bright red blood per rectum, melanotic stools, urinary frequency, urinary retention, dysuria, hematuria MSK: Denies any joint pain, muscle pains, swelling Skin: Denies any rashes, lesions, discoloration Neuro: Denies any headache, lightheadedness, dizziness, fainting, weakness Psych: Denies SI/HI Patient History <Chandler Jimenez DO - Last Filed: 04/29/24 06:52> Medical History (Updated 04/29/24 @ 07:44 by Eva Beebe DO) Sjogren's syndrome Headache Osteopenia Mumps Measles Chicken pox Hypothyroidism Hypertension Surgical History Anesthesia History of foot surgery History of appendectomy History of hysterectomy No history of previous surgery Family History Father Hyperlipidemia Hypertension Mother Hypertension Hyperlipidemia Brother Hypertension Sister Hypertension History of heart disease Social History household members: significant other Smoking Status: Never smoker alcohol intake: current Smoking Status: Never smoker alcohol intake frequency: 0-2 drinks per day Exam <Chandler Jimenez DO - Last Filed: 04/29/24 06:52> Narrative Exam Narrative: General: Cooperative, comfortable, well-developed, not in acute distress HEENT: Normocephalic, atraumatic, PERRLA, normal sclera, eyelids normal, Neck: Active full range of motion, atraumatic Chest: Normal to inspection, negative crepitus, no overlying erythema ecchymosis Respiratory: Normal respiratory effort, not in acute respiratory distress, clear to auscultation bilaterally negative cough, wheeze, tachypnea, rhonchi, rales Cardiology: Regular rate rhythm negative gallop, murmur, rubs GI/: Normal to inspection, soft, nonrigid, no tenderness to palpation, exam deferred MSK: Full range of active range of motion of all 4 extremities, atraumatic Skin: No rashes lesions noted Neuro: Alert awake oriented x3, moves all 4 extremities spontaneously, cranial nerves intact, able to answer all questions appropriately follows commands appropriately Psych: Cooperative, negative suicidal or homicidal ideations Initial Vital Signs Initial Vital Signs: Vital Signs Temperature 97.3 F L 04/29/24 06:35 Pulse Rate 103 H 04/29/24 06:35 Respiratory Rate 18 04/29/24 06:35 Blood Pressure 138/73 04/29/24 06:35 Pulse Oximetry 94 04/29/24 06:35 Oxygen Delivery Method Room Air 04/29/24 06:35 <Eva Beebe, DO - Last Filed: 04/29/24 11:54> Initial Vital Signs Initial Vital Signs: Vital Signs Temperature 97.3 F L 04/29/24 06:35 Pulse Rate 103 H 04/29/24 06:35 Respiratory Rate 18 04/29/24 06:35 Blood Pressure 138/73 04/29/24 06:35 Pulse Oximetry 94 04/29/24 06:35 Oxygen Delivery Method Room Air 04/29/24 06:35 Course <Chandler Jimenez, DO - Last Filed: 04/29/24 06:52> Orders Ordered: ED Orders 04/29/24 06:35 EKG-12 Lead Stat 04/29/24 06:39 BMP [Basic Metabolic Panel] Stat CBC Auto Diff [Complete Blood Count AUTO DIFF] Stat Lipase Stat MAG [Magnesium] Stat NT-proBNP (BNP-Adult 18+) Stat TSH [Thyroid Stimulating Hormone] Stat Troponin & CK Cardiac Panel Stat 04/29/24 06:41 CXR [XR chest 1V] Stat 04/29/24 06:45 Covid-19 + FLU A/B + RSV - PCR Stat 04/29/24 07:30 Lactate (Lactic Acid) Stat 04/29/24 07:40 Urine Culture Stat Urine Microscopic Stat 04/29/24 07:41 Blood Culture Stat Procalcitonin Stat Discontinued Medications Cephalexin HCl (Cephalexin 250 Mg Capsule) 500 mg PO NOW ONE Stop: 04/29/24 08:00 Last Admin: 04/29/24 08:07 Dose: 500 mg Documented By: JENNIFER Magnesium Sulfate (Magnesium Sulfate) 2 gm in 50 mls @ 150 mls/hr IV NOW ONE Stop: 04/29/24 06:59 Last Infusion: 04/29/24 07:23 Dose: Infused Documented By: LUIS ENRIQUE Co-signed By: JENNIFER Admin: 04/29/24 06:44 Dose: 150 mls/hr Documented By: SHANNON Co-signed By: Vital Signs Vital signs: Vital Signs - 8 hr 04/29/24 06:35 04/29/24 06:39 04/29/24 06:39 Temperature 97.3 F L Pulse Rate 103 H 104 H Respiratory Rate 18 17 Blood Pressure 138/73 138/73 Pulse Oximetry 94 93 Oxygen Delivery Method Room Air 04/29/24 07:00 04/29/24 07:00 04/29/24 07:30 Temperature Pulse Rate 99 H 92 H Respiratory Rate 22 Blood Pressure 136/67 Pulse Oximetry 93 93 Oxygen Delivery Method 04/29/24 07:30 04/29/24 07:48 04/29/24 07:48 Temperature Pulse Rate 94 H Respiratory Rate 21 Blood Pressure 134/63 144/74 H Pulse Oximetry 95 Oxygen Delivery Method 04/29/24 08:00 04/29/24 08:00 04/29/24 08:30 Temperature Pulse Rate 90 Respiratory Rate 23 Blood Pressure 138/71 147/80 H Pulse Oximetry 96 Oxygen Delivery Method 04/29/24 08:30 Temperature Pulse Rate 88 Respiratory Rate 25 H Blood Pressure Pulse Oximetry 95 Oxygen Delivery Method <Eva Beebe, - Last Filed: 04/29/24 11:54> Orders Ordered: ED Orders 04/29/24 06:35 EKG-12 Lead Stat 04/29/24 06:39 BMP [Basic Metabolic Panel] Stat CBC Auto Diff [Complete Blood Count AUTO DIFF] Stat Lipase Stat MAG [Magnesium] Stat NT-proBNP (BNP-Adult 18+) Stat TSH [Thyroid Stimulating Hormone] Stat Troponin & CK Cardiac Panel Stat 04/29/24 06:41 CXR [XR chest 1V] Stat 04/29/24 06:45 Covid-19 + FLU A/B + RSV - PCR Stat 04/29/24 07:30 Lactate (Lactic Acid) Stat 04/29/24 07:40 Urine Culture Stat Urine Microscopic Stat 04/29/24 07:41 Blood Culture Stat Procalcitonin Stat Discontinued Medications Cephalexin HCl (Cephalexin 250 Mg Capsule) 500 mg PO NOW ONE Stop: 04/29/24 08:00 Last Admin: 04/29/24 08:07 Dose: 500 mg Documented By: JENNIFER Magnesium Sulfate (Magnesium Sulfate) 2 gm in 50 mls @ 150 mls/hr IV NOW ONE Stop: 04/29/24 06:59 Last Infusion: 04/29/24 07:23 Dose: Infused Documented By: LUIS ENRIQUE Co-signed By: JENNIFER Admin: 04/29/24 06:44 Dose: 150 mls/hr Documented By: SHANNON Co-signed By: Vital Signs Vital signs: Vital Signs - 8 hr 04/29/24 06:35 04/29/24 06:39 04/29/24 06:39 Temperature 97.3 F L Pulse Rate 103 H 104 H Respiratory Rate 18 17 Blood Pressure 138/73 138/73 Pulse Oximetry 94 93 Oxygen Delivery Method Room Air 04/29/24 07:00 04/29/24 07:00 04/29/24 07:30 Temperature Pulse Rate 99 H 92 H Respiratory Rate 22 Blood Pressure 136/67 Pulse Oximetry 93 93 Oxygen Delivery Method 04/29/24 07:30 04/29/24 07:48 04/29/24 07:48 Temperature Pulse Rate 94 H Respiratory Rate 21 Blood Pressure 134/63 144/74 H Pulse Oximetry 95 Oxygen Delivery Method 04/29/24 08:00 04/29/24 08:00 04/29/24 08:30 Temperature Pulse Rate 90 Respiratory Rate 23 Blood Pressure 138/71 147/80 H Pulse Oximetry 96 Oxygen Delivery Method 04/29/24 08:30 Temperature Pulse Rate 88 Respiratory Rate 25 H Blood Pressure Pulse Oximetry 95 Oxygen Delivery Method MDM - Arrhythmia/Palpitations <Chandler Jimenez DO - Last Filed: 04/29/24 06:52> Differential Diagnosis Differential diagnosis: Likely palpitations, anxiety, sinus tachycardia, artial fibrillation, artial flutter, ventricular premature beats, supraventricular tachycardia and other (ACS, pneumonia, electrolyte abnormality, CHF, COVID, flu) Lab Data 04/29/24 06:39 04/29/24 06:39 Labs: Lab Results 04/29/24 04/29/24 04/29/24 Range/Units 06:39 06:45 07:30 WBC 23.8 H (4.5-11.0) X10^3/uL RBC 4.12 (4.0-5.2) X10^6/uL Hgb 13.0 (12.0-16.0) g/dL Hct 38.8 (36-46) % MCV 94.2 (80-100) fL MCH 31.6 (26-34) PG MCHC 33.6 (30-36) % RDW 13.0 (11.6-14.8) % Plt Count 460 H (150-400) X10^3/uL Neut % (Auto) 82.6 H (50-75) % Lymph % (Auto) 8.1 L (25-40) % [place] % (Auto) 8.9 (3-14) % Eos % (Auto) 0.1 L (2-4) % Baso % (Auto) 0.3 (0-2) % Neut # (Auto) 16156 H (2262-6755) /uL Lymph # (Auto) 1900 (2196-5331) /uL [place] # (Auto) 2100 H (0-900) /uL Eos # (Auto) 0 (0-450) /uL Baso # (Auto) 100 (0-100) /uL Sodium 131 L (137-145) mmol/L Potassium 4.1 (3.4-5.1) mmol/L Chloride 93 L (98-107) mmol/L Carbon Dioxide 25 (22-32) mmol/L BUN 9 (7-17) mg/dL Creatinine 0.59 (0.52-1.04) mg/dL Estimated GFR > 60 (>60) mL/min BUN/Creatinine Ratio 15.3 (6-22) Glucose 139 H (80-110) mg/dL Lactate 0.6 L (0.7-2.1) mmol/L Calcium 8.7 (8.4-10.2) mg/dL Magnesium 2.1 (1.6-2.3) mg/dL Total Creatine Kinase 28 L (30-135) U/L Troponin I < 0.012 (0.01-0.034) ng/mL NT-Pro-B Natriuret Pep 1170 H (<125) pg/mL Lipase 32 (23-300) U/L Procalcitonin (<0.5) ng/mL TSH 3.16 (0.47-4.68) uIU/mL Urine RBC (0-5/HPF) Urine WBC (0-5/HPF) Ur Squamous Epith Cells (0-5/HPF) Urine Bacteria (None) Ur Culture Indicated? Vol Urine Centrifuged SARS-CoV-2 (PCR) Negative (Negative) Influenza A (RT-PCR) Flu a negative (NEGATIVE) Influenza B (RT-PCR) Flu b negative (NEGATIVE) RSV (PCR) Negative (Negative) 04/29/24 04/29/24 Range/Units 07:40 07:41 WBC (4.5-11.0) X10^3/uL RBC (4.0-5.2) X10^6/uL Hgb (12.0-16.0) g/dL Hct (36-46) % MCV (80-100) fL MCH (26-34) PG MCHC (30-36) % RDW (11.6-14.8) % Plt Count (150-400) X10^3/uL Neut % (Auto) (50-75) % Lymph % (Auto) (25-40) % [place] % (Auto) (3-14) % Eos % (Auto) (2-4) % Baso % (Auto) (0-2) % Neut # (Auto) (2919-6504) /uL Lymph # (Auto) (3925-8624) /uL [place] # (Auto) (0-900) /uL Eos # (Auto) (0-450) /uL Baso # (Auto) (0-100) /uL Sodium (137-145) mmol/L Potassium (3.4-5.1) mmol/L Chloride (98-107) mmol/L Carbon Dioxide (22-32) mmol/L BUN (7-17) mg/dL Creatinine (0.52-1.04) mg/dL Estimated GFR (>60) mL/min BUN/Creatinine Ratio (6-22) Glucose (80-110) mg/dL Lactate (0.7-2.1) mmol/L Calcium (8.4-10.2) mg/dL Magnesium (1.6-2.3) mg/dL Total Creatine Kinase (30-135) U/L Troponin I (0.01-0.034) ng/mL NT-Pro-B Natriuret Pep (<125) pg/mL Lipase (23-300) U/L Procalcitonin 0.434 (<0.5) ng/mL TSH (0.47-4.68) uIU/mL Urine RBC 1-5/hpf (0-5/HPF) Urine WBC 10-30/hpf H (0-5/HPF) Ur Squamous Epith Cells 1-5 /hpf (0-5/HPF) Urine Bacteria Many (>30) H (None) Ur Culture Indicated? Specimen cultured Vol Urine Centrifuged 10ml (spun) SARS-CoV-2 (PCR) (Negative) Influenza A (RT-PCR) (NEGATIVE) Influenza B (RT-PCR) (NEGATIVE) RSV (PCR) (Negative) Urine Dip Bedside Urine Glucose Negative Bedside Urine Bilirubin - Negative Bedside Urine Ketone +/- 5 Urine Specific [place] 1.010 Bedside Urine Occult Blood ++ Bedside Urine pH 6.5 Bedside Urine Protein +/- 15 Bedside Urine Urobilinogen - Negative Bedside Urine Nitrite + Positive Bedside Urine Leukocytes ++ 125 Esterase ECG Data Interpretation: EKG interpreted ED physician sinus tachycardia 107 beats per minute QTC [address] changes no STEMI MDM Narrative Medical decision making narrative: 64-year-old female with a history of paroxysmal AFib status post ablation not on any anticoagulation follows with Dr. Urban presents for palpitations. Awoke this morning at 4:00 a.m. to take her medications noticed palpitations checked her heart monitor which told her she was in atrial fibrillation 170 beats per minute, she took her extra dose of diltiazem 60 mg as instructed by her hydraulic bull riveter operator for breakthrough AFib/palpitations. Patient presented with complete resolution of symptoms, EKG sinus tachycardia nonischemic in nature. Patient had lab work imaging and respiratory panel performed here in the emergency department. Patient with leukocytosis of 23.8 <Eva C Mank, DO - Last Filed: 04/29/24 11:54> Lab Data Labs: Lab Results 04/29/24 04/29/24 04/29/24 Range/Units 06:39 06:45 07:30 WBC 23.8 H (4.5-11.0) X10^3/uL RBC 4.12 (4.0-5.2) X10^6/uL Hgb 13.0 (12.0-16.0) g/dL Hct 38.8 (36-46) % MCV 94.2 (80-100) fL MCH 31.6 (26-34) PG MCHC 33.6 (30-36) % RDW 13.0 (11.6-14.8) % Plt Count 460 H (150-400) X10^3/uL Neut % (Auto) 82.6 H (50-75) % Lymph % (Auto) 8.1 L (25-40) % [place] % (Auto) 8.9 (3-14) % Eos % (Auto) 0.1 L (2-4) % Baso % (Auto) 0.3 (0-2) % Neut # (Auto) 14681 H (9233-4664) /uL Lymph # (Auto) 1900 (1415-1203) /uL [place] # (Auto) 2100 H (0-900) /uL Eos # (Auto) 0 (0-450) /uL Baso # (Auto) 100 (0-100) /uL Sodium 131 L (137-145) mmol/L Potassium 4.1 (3.4-5.1) mmol/L Chloride 93 L (98-107) mmol/L Carbon Dioxide 25 (22-32) mmol/L BUN 9 (7-17) mg/dL Creatinine 0.59 (0.52-1.04) mg/dL Estimated GFR > 60 (>60) mL/min BUN/Creatinine Ratio 15.3 (6-22) Glucose 139 H (80-110) mg/dL Lactate 0.6 L (0.7-2.1) mmol/L Calcium 8.7 (8.4-10.2) mg/dL Magnesium 2.1 (1.6-2.3) mg/dL Total Creatine Kinase 28 L (30-135) U/L Troponin I < 0.012 (0.01-0.034) ng/mL NT-Pro-B Natriuret Pep 1170 H (<125) pg/mL Lipase 32 (23-300) U/L Procalcitonin (<0.5) ng/mL TSH 3.16 (0.47-4.68) uIU/mL Urine RBC (0-5/HPF) Urine WBC (0-5/HPF) Ur Squamous Epith Cells (0-5/HPF) Urine Bacteria (None) Ur Culture Indicated? Vol Urine Centrifuged SARS-CoV-2 (PCR) Negative (Negative) Influenza A (RT-PCR) Flu a negative (NEGATIVE) Influenza B (RT-PCR) Flu b negative (NEGATIVE) RSV (PCR) Negative (Negative) 04/29/24 04/29/24 Range/Units 07:40 07:41 WBC (4.5-11.0) X10^3/uL RBC (4.0-5.2) X10^6/uL Hgb (12.0-16.0) g/dL Hct (36-46) % MCV (80-100) fL MCH (26-34) PG MCHC (30-36) % RDW (11.6-14.8) % Plt Count (150-400) X10^3/uL Neut % (Auto) (50-75) % Lymph % (Auto) (25-40) % [place] % (Auto) (3-14) % Eos % (Auto) (2-4) % Baso % (Auto) (0-2) % Neut # (Auto) (3760-7347) /uL Lymph # (Auto) (6871-3935) /uL [place] # (Auto) (0-900) /uL Eos # (Auto) (0-450) /uL Baso # (Auto) (0-100) /uL Sodium (137-145) mmol/L Potassium (3.4-5.1) mmol/L Chloride (98-107) mmol/L Carbon Dioxide (22-32) mmol/L BUN (7-17) mg/dL Creatinine (0.52-1.04) mg/dL Estimated GFR (>60) mL/min BUN/Creatinine Ratio (6-22) Glucose (80-110) mg/dL Lactate (0.7-2.1) mmol/L Calcium (8.4-10.2) mg/dL Magnesium (1.6-2.3) mg/dL Total Creatine Kinase (30-135) U/L Troponin I (0.01-0.034) ng/mL NT-Pro-B Natriuret Pep (<125) pg/mL Lipase (23-300) U/L Procalcitonin 0.434 (<0.5) ng/mL TSH (0.47-4.68) uIU/mL Urine RBC 1-5/hpf (0-5/HPF) Urine WBC 10-30/hpf H (0-5/HPF) Ur Squamous Epith Cells 1-5 /hpf (0-5/HPF) Urine Bacteria Many (>30) H (None) Ur Culture Indicated? Specimen cultured Vol Urine Centrifuged 10ml (spun) SARS-CoV-2 (PCR) (Negative) Influenza A (RT-PCR) (NEGATIVE) Influenza B (RT-PCR) (NEGATIVE) RSV (PCR) (Negative) Urine Dip Bedside Urine Glucose Negative Bedside Urine Bilirubin - Negative Bedside Urine Ketone +/- 5 Urine Specific [place] 1.010 Bedside Urine Occult Blood ++ Bedside Urine pH 6.5 Bedside Urine Protein +/- 15 Bedside Urine Urobilinogen - Negative Bedside Urine Nitrite + Positive Bedside Urine Leukocytes ++ 125 Esterase ECG Data Attestation: I personally reviewed and interpreted this ECG as follows: Prior ECG tracings: available for review Interpretation: EKG interpreted ED physician sinus tachycardia 107 beats per minute QTC [address] changes no STEMI. MDM Narrative Medical decision making narrative: 64-year-old female with a history of paroxysmal AFib status post ablation not on any anticoagulation follows with Dr. Urban presents for palpitations. Awoke this morning at 4:00 a.m. to take her medications noticed palpitations checked her heart monitor which told her she was in atrial fibrillation 170 beats per minute, she took her extra dose of diltiazem 60 mg as instructed by her hydraulic bull riveter operator for breakthrough AFib/palpitations. Patient presented with complete resolution of symptoms, EKG sinus tachycardia nonischemic in nature. Patient had lab work imaging and respiratory panel performed here in the emergency department. Patient with leukocytosis of 23.8 04/29/[address] Beebe: Patient signed out to myself by Dr. Jimenez. Patient is seen and evaluated by myself. Has history of atrial fibrillation status post ablation no longer on anticoagulation has had some episodes of palpitations was seen here on 04/23/2024 for similar. Patient was prescribed diltiazem 60 mg she took a dose this morning with symptoms present. EKG shows sinus tach no acute ischemic changes appreciated. Labs do show a white count of 23 was 14 on the 23 of April normal white count, platelets are 460 with predominance of neutrophils and absolute count is 19,700. Coags show an INR 1.3 PTT of 31. Labs show sodium of 131 potassium 4.1 chloride 93 CO2 25 BUN 9 creatinine 0.59, glucose is 139 calcium is 8.7 Mag is 2.7, total CK is 28 with a troponin of less than 0.012 and a BNP 11 70 which is improved from prior, TSH is 3.16. Lactate is 0.6. Procalcitonin is 0.434 EKG sinus tach rate of 107, patient has prior from 04/23/2023 which appears similar. Chest x-ray shows no acute change. Influenza/RSV/COVID is negative Point of care urine shows positive nitrates positive leukocyte esterase. Urine microscopy 1-5 RBCs 10-30 WBCs 1-5 squamous many bacteria. Patient's urine sent for culture. 64-year-old female woke up with palpitations was slightly tachycardic no irregularity appears to be sinus tach on EKG had similar symptoms presented on 04/23/2024 patient's white count does not appear to have elevated to 23 today, patient with white count and tachycardia meet septic criteria but appears overall well. Does not appear to have potential source of infection with UTI. Patient's heart rate has not been be persistently elevated above 90s. Discussed with patient she has had some urinary symptoms some low-grade fevers by description was given a dose of oral Keflex as pharmacies are not open for several more hours. Blood cultures are pending but patient is felt appropriate for discharge home with return precautions. She has follow up with Cardiology in place. Discharge Plan Departure Patient Disposition: Home Clinical Impression: Palpitations, UTI (urinary tract infection) Instructions: DI for Urinary Tract Infection (UTI) Activity Restrictions/Additional Instructions: Your rhythm on your EKG today showed sinus tachycardia no other arrhythmias but you were found to have elevated white blood cell count and appears you have a UTI or urinary tract infection. Continue to take your medications as prescribed by your hydraulic bull riveter operator. Take oral antibiotics until completed. Prescription sent to [email or web address] in [place]. Please return if you have persistent fevers, new chest pain or shortness of breath, lightheadedness or passing out, vomiting, difficulty or inability to urinate, black or bloody stools, new abdominal back or flank pain or other new or concerning changes. Prescriptions: New cephalexin 500 mg capsule 500 mg PO TID 7 Days Qty: 21 0RF No Action diltiazem HCl 240 mg capsule,extended release 24 hr 240 mg PO DAILY Qty: 90 1RF metoprolol succinate 25 mg tablet extended release 24 hr 12.5 mg PO DAILY Qty: 30 2RF Rx Instructions: 12.5mg (1/2) tab daily for 1 week, then up to 25mg daily lisinopril 10 mg tablet 10 mg PO BID Qty: 180 1RF Rx Instructions: PT NEEDS TO BE SEEN BY END OF THIS RX PRIOR TO ANY FUTURE FILLS. PLEASE CALL TO SCHED. FUTURE APPT. THANKS 11/12/19 Eliquis 5 mg tablet 5 mg PO BID Qty: 180 1RF Rx Instructions: pt will need to be seen before next renewal thyroid (pork) [[facility]] 90 mg tablet 75 mg PO QDAY Qty: 0 furosemide [Lasix] 20 mg tablet 20 mg PO DAILY 14 Days Qty: 14 0RF Referrals: Jessica Her MD [Primary Care Provider] - Stand Alone Forms: Patient Portal/API/Survey
--- NOTE | 2024-04-29 06:37 | EKG_ITS ---
[address] [address] Test Date: 2024-04-29 Pat Name: Rebecca Funes Department: Room: Gender: Female Ferruler: LAKEISHA HINES : 1960 Requested By: Order Number: [id number] Reading MD: Chandler Prado Measurements Intervals [place] Rate: 107 P: 25 RI: 162 QRS: 48 QRSD: 84 T: 17 QT: 344 QTc: 459 Interpretive Statements Sinus tachycardia Cannot rule out Anterior infarct , age undetermined Electronically Signed On 04-29-2024 18:57:57 PST by Chandler Prado
--- NOTE | 2024-04-29 06:41 | DI.RAD.S_ITS ---
PROCEDURE: XR CHEST 1V INDICATIONS: Palpitations TECHNIQUE: One view of the chest was acquired. COMPARISON: [facility], CR, XR CHEST 1V, 04/23/2024, 18:48. FINDINGS: Surgical changes and devices: None. Lungs and pleura: Lungs are clear. No pleural effusions or pneumothorax. Mediastinum: Mediastinal contours appear unchanged. Asymmetric elevation of the right hemidiaphragm.. Heart size is normal. Bones and chest wall: No suspicious bony lesions. Overlying soft tissues appear unremarkable. IMPRESSION: No acute cardiopulmonary abnormality is seen. Dictated by: Malik Espinosa M.D. on 04/29/2024 at 7:32 Approved by: Malik Espinosa M.D. on 04/29/2024 at 7:33
[2024-04-29] MEDS: MAGNESIUM SULFATE 2 GM/50 ML PIGGYBACK IV (06:44)
[2024-04-29 06:46] LABS: Add Manual Diff / Slide Review NO; Basophils Absolute Auto 100 /uL (0-100); Basophils Percent Auto 0.3 % (0-2); Eosinophils Absolute Auto 0 /uL (0-450); Eosinophils Percent Auto 0.1 % (2-4); Hematocrit 38.8 % (36-46); Lymphocytes Absolute Auto 1900 /uL (1100-4500); Lymphocytes Percent Auto 8.1 % (25-40); Mean Corpuscular HGB Conc 33.6 % (30-36); Mean Corpuscular Hemoglobin 31.6 PG (26-34); Mean Corpuscular Volume 94.2 fL (80-100); Monocytes Absolute Auto 2100 /uL (0-900); Monocytes Percent Auto 8.9 % (3-14); Neutrophils Absolute Auto 19700 /uL (1500-7000); Neutrophils Percent Auto 82.6 % (50-75); Platelet Count 460 X10^3/uL (150-400); Red Blood Cell Count 4.12 X10^6/uL (4.0-5.2); White Blood Cell Count 23.8 X10^3/uL (4.5-11.0)
[2024-04-29 07:01] LABS: BUN Creatinine Ratio 15.3 (6-22); Blood Urea Nitrogen 9 mg/dL (7-17); Calcium 8.7 mg/dL (8.4-10.2); Carbon Dioxide 25 mmol/L (22-32); Chloride 93 mmol/L (98-107); Creatine Kinase 28 U/L (30-135); Estimated Glomerular Filt Rate > 60 mL/min (>60); Glucose 139 mg/dL (80-110); HEMOLYSIS < 15 (0-50); Lipase 32 U/L (23-300); Magnesium 2.1 mg/dL (1.6-2.3); Potassium 4.1 mmol/L (3.4-5.1); Sodium 131 mmol/L (137-145)
[2024-04-29 07:13] LABS: NT-proBNP (BNP-Adult 18+) 1170 pg/mL (<125); Troponin I < 0.012 ng/mL (0.01-0.034)
[2024-04-29 07:32] LABS: Influenza A - CEPHEID Flu A NEGATIVE (NEGATIVE); Influenza B - CEPHEID Flu B NEGATIVE (NEGATIVE); Respiratory Syncytial Virus Negative (Negative)
[2024-04-29 07:37] LABS: Thyroid Stimulating Hormone 3.16 uIU/mL (0.47-4.68)
[2024-04-29 07:39] LABS: COVID-19 CEPHEID 4-PLEX PCR Negative (Negative)
[2024-04-29 07:51] LABS: Lactate (Lactic Acid) 0.6 mmol/L (0.7-2.1)
[2024-04-29 07:55] LABS: Bacteria Urine Many (>30); Culture Indicated Urine Specimen Cultured; RBC Urine 1-5/HPF (0-5/HPF); Squamous Epithelial Cell Urine 1-5 /HPF (0-5/HPF); Urine Volume 10mL (spun); WBC Urine 10-30/HPF (0-5/HPF)
[2024-04-29] MEDS: cephALEXin 250 MG CAPSULE 500 MG PO (08:07)
[2024-04-29 08:16] LABS: Procalcitonin 0.434 ng/mL (<0.5)
== END 2024-04-29 08:40 | disposition home or self-care (01) ==
PROVIDERS: Student in an Organized Health Care Education/Training Program; Emergency Provider Emergency Medicine; PCP Family Medicine
DX: R00.2 Palpitations (principal); N39.0 Urinary tract infection, site not specified
CPT/HCPCS: 0241U; 36415; 71045; 80048; 81003; 81015; 82550; 83605; 83690; 83735; 83880; 84145; 84443; 84484; 85025; 87040; 87077; 87086; 87186; 93005; 96365; 99284; J3475

== ENCOUNTER → 2024-06-05 16:13 | Outpatient (CLI) | payer MEDICARE, OTHER, SELFPAY ==
[2019-10-08 08:25] VITALS: BMI 23.3
--- NOTE | 2024-06-05 16:16 | DI.RAD.S_ITS ---
PROCEDURE: XR CHEST 2V INDICATIONS: CHRONIC HEART FAILURE W/PRESERVED EJECTION FRACTION TECHNIQUE: 2 views of the chest were acquired. COMPARISON: [facility], CR, XR CHEST 1V, 04/29/2024, 6:47. FINDINGS: Heart, mediastinum and pulmonary vascular: Heart is normal in size and configuration. Mediastinum is unremarkable. Pulmonary vascular is normal. Lungs: Clear Pleural spaces: Normal-no effusions or pneumothorax. Bones and soft tissues: Normal IMPRESSION: Normal chest. Dictated by: Anuj Henning M.D. on 06/06/2024 at 10:08 Approved by: Anuj Henning M.D. on 06/06/2024 at 10:08
== END ==
PROVIDERS: PCP Family Medicine; Referring Provider Family Medicine; Visit Provider Internal Medicine Cardiovascular Disease
DX: I50.32 Chronic diastolic (congestive) heart failure (principal)
CPT/HCPCS: 71046

== ENCOUNTER 2025-01-02 19:44 | Emergency (ER) | payer MEDICARE, OTHER, SELFPAY ==
[2019-10-08 08:25] VITALS: BMI 23.3
[2025-01-02] VITALS (15 sets, daily range): BP systolic 152–200; BP diastolic 79–116; PULSE 75–107; RESP 14–20; TEMP 36.7–37; O2SAT 92–98; BMI 22.4
--- NOTE | 2025-01-02 20:15 | EKG_ITS ---
[facility]
--- NOTE | 2025-01-02 20:15 | DI.RAD.S_ITS ---
PROCEDURE: XR CHEST 1V
--- NOTE | 2025-01-02 20:15 | ED_ITS ---
HPI - General Adult
--- NOTE | 2025-01-02 20:15 | ED.GENADULT ---
HPI - General Adult General Chief complaint: Urogenital-Female Stated complaint: fast heart rate. UTI? Kidney infection? 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 Rizvi. Recent diagnosis urinary tract infection in clinic, taking oral nitrofurantoin. [place] heart racing sensation earlier today, no syncope or presyncope symptoms. Concerned that maybe her urinary tract infection might be worsening, that it might be a cause of her heart racing symptoms despite taking her diltiazem, denies any missed doses of diltiazem. Denies chest pain shortness of breath. No fevers or chills. Some back pain. Related Data Home Medications ?Medication ?Instructions ?Recorded ?Confirmed thyroid (pork) 90 mg tablet 75 mg PO QDAY #0 tabs 05/17/19 01/02/25 ([place] Thyroid) estradiol 0.025 mg/24 hr weekly 1 patch topical 01/02/25 transdermal patch levothyroxine 50 mcg tablet 50 mcg PO DAILY 01/02/25 01/02/25 lisinopril 10 mg tablet 20 mg PO BID 01/02/25 01/02/25 Previous Rx's ?Medication ?Instructions ?Recorded diltiazem HCl 240 mg capsule,24 240 mg PO DAILY #90 caps 10/03/19 hr,extended release metoprolol succinate 25 mg 12.5 mg (1/2 x 25 mg) PO DAILY #30 10/09/19 tablet,extended release 24 hr tabs apixaban 5 mg tablet (Eliquis) 5 mg PO BID #180 tabs 12/06/19 Allergies Allergy/AdvReac Type Severity Reaction Status Date / Time Sulfa (Sulfonamide AdvReac Unknown Rash Verified 01/02/25 19:57 Antibiotics) (SULFA (SULFONAMIDE ANTIBIOTICS)) hydrochlorothiazide AdvReac Palpitation Verified 01/02/25 19:57 s Patient History Medical History (Updated 01/02/25 @ 22:26 by Chino Harp MD) Sjogren's syndrome Headache Osteopenia Mumps Measles Chicken pox Hypothyroidism Hypertension Surgical History Anesthesia History of foot surgery History of appendectomy History of hysterectomy No history of previous surgery Family History Father Hyperlipidemia Hypertension Mother Hypertension Hyperlipidemia Brother Hypertension Sister Hypertension History of heart disease Social History household members: significant other Smoking Status: Never smoker alcohol intake: current Smoking Status: Never smoker alcohol intake frequency: 0-2 drinks per day Exam Narrative Exam Narrative: GENERAL: Well-developed patient, in mild distress. HEAD: Atraumatic. Normocephalic. EYES: Pupils equal round and reactive. Extraocular motions intact. No scleral icterus. No injection or drainage. ENT: Nose without bleeding, purulent drainage. Throat without erythema, tonsillar hypertrophy or exudate. Airway patent. NECK: Trachea midline. Non tender CARDIOVASCULAR: Regular rate and rhythm without murmurs, gallops, or rubs. RESPIRATORY: Clear to auscultation. Breath sounds equal bilaterally. No wheezes, rales, or rhonchi. GASTROINTESTINAL: Abdomen soft, non-tender, nondistended. EXTREMITIES: No edema or joint tenderness. BACK: Nontender without deformity or crepitance. No flank tenderness. NEURO: AOx3. Motor functions grossly nonfocal. SKIN: No rash or erythema of visible areas Initial Vital Signs Initial Vital Signs: Vital Signs Pulse Rate 75 01/02/25 19:51 Blood Pressure 200/116 H 01/02/25 19:51 Pulse Oximetry 96 01/02/25 19:51 Course Orders Ordered: Discontinued Medications Sodium Chloride (Normal Saline 0.9%) 1,000 mls @ 1,000 mls/hr IV BOLUS ONE Stop: 01/02/25 21:19 Last Infusion: 01/02/25 22:00 Dose: Infused Documented By: Admin: 01/02/25 20:42 Dose: 1,000 mls/hr Documented By: SB Vital Signs Vital signs: Vital Signs - 8 hr 01/02/25 22:15 01/02/25 22:15 01/02/25 22:30 Temperature Pulse Rate 105 H Respiratory Rate 15 Blood Pressure 159/90 H 167/89 H Pulse Oximetry 96 Oxygen Delivery Method Room Air 01/02/25 22:30 Temperature 98.1 F Pulse Rate 85 Respiratory Rate 19 Blood Pressure Pulse Oximetry 96 Oxygen Delivery Method Room Air Medical Decision Making Lab Data Lab results reviewed: Yes I reviewed the patient's lab results. Lab results narrative: White blood cell count 8400, hemoglobin 14.6, platelets adequate. Glucose 121. Renal function, serum CO2, potassium level normal. Sodium 130 slight low. Liver functions and lipase normal. Troponin negative. Urinalysis not convincing for infection, no urine culture indicated. 01/02/25 20:00 01/02/25 20:00 Labs: Lab Results 01/02/25 01/02/25 01/02/25 Range/Units 20:00 20:00 20:03 WBC 8.4 (4.5-11.0) X10^3/uL RBC 4.46 (4.0-5.2) X10^6/uL Hgb 14.6 (12.0-16.0) g/dL Hct 42.6 (36-46) % MCV 95.5 (80-100) fL MCH 32.6 (26-34) PG MCHC 34.2 (30-36) % RDW 12.6 (11.6-14.8) % Plt Count 241 (150-400) X10^3/uL Neut % (Auto) 59.6 (50-75) % Lymph % (Auto) 26.3 (25-40) % [place] % (Auto) 11.8 (3-14) % Eos % (Auto) 1.5 L (2-4) % Baso % (Auto) 0.8 (0-2) % Neut # (Auto) 5000 (0893-9542) /uL Lymph # (Auto) 2200 (5577-5587) /uL [place] # (Auto) 1000 H (0-900) /uL Eos # (Auto) 100 (0-450) /uL Baso # (Auto) 100 (0-100) /uL Sodium 130 L (137-145) mmol/L Potassium 4.7 (3.4-5.1) mmol/L Chloride 96 L (98-107) mmol/L Carbon Dioxide 22 (22-32) mmol/L BUN 18 H (7-17) mg/dL Creatinine 0.75 (0.52-1.04) mg/dL Estimated GFR > 60 (>60) mL/min BUN/Creatinine Ratio 24.0 H (6-22) Glucose 121 H (70-99) mg/dL Calcium 8.8 (8.4-10.2) mg/dL Magnesium 2.2 (1.6-2.3) mg/dL Total Bilirubin 0.7 (0.2-1.3) mg/dL AST 75 H (14-36) IU/L ALT 29 (<35) IU/L Alkaline Phosphatase 77 (38-126) U/L Troponin I < 0.012 (0.01-0.034) ng/mL NT-Pro-B Natriuret Pep 443 H (<125) pg/mL Total Protein 7.9 (6.3-8.2) g/dL Albumin 4.7 (3.5-5.0) g/dL Globulin 3.2 (1.7-4.1) g/dL Albumin/Globulin Ratio 1.5 (1.0-2.8) Lipase 117 121 (23-300) U/L Urine Color Yellow Urine Appearance Clear Urine pH 6.5 (4.5-8.0) Ur Specific [place] <=1.005 (1.000-1.035) Urine Protein Negative (Negative) Urine Glucose (UA) Negative (Negative) g/dL Urine Ketones Negative (NEGATIVE) Urine Occult Blood 1+ H (Negative) Urine Nitrate Negative (Negative) Urine Bilirubin Negative (NEGATIVE) Urine Urobilinogen 0.2 (0.2) E.U./dL Ur Leukocyte Esterase Negative (NEGATIVE) Urine RBC None seen (0-5/HPF) Urine WBC None seen (0-5/HPF) Ur Squamous Epith Cells 0-1 /hpf (0-5/HPF) Urine Bacteria Occasional (0-1) (None) Ur Culture Indicated? Cult not indicated Vol Urine Centrifuged 10ml (spun) Imaging Data Chest x-ray: Radiologist's Impression: [address] [address] XRay Report Signed Patient: Rebecca Funes MR#: [id number] : 1960 Acct:[id number] Age/Sex: 64 / F Date of Service: 01/02/25 Loc: ED Accession Number: [id number] Procedure: XR chest 1V Ordering Provider: Chino Harp MD PROCEDURE: XR CHEST 1V INDICATIONS: flank pain, heart racing TECHNIQUE: One view of the chest was acquired. COMPARISON: [facility], CR, XR CHEST 2V, 06/05/2024, 16:12. [facility], CR, XR CHEST 1V, 04/29/2024, 6:47. FINDINGS AND IMPRESSION: No dense airspace disease or pleural effusion on this single view study. Unchanged mediastinal and hilar contours. Normal heart size. Mild degenerative osseous findings. Dictated by: Brain Polk M.D. on 01/02/2025 at 21:46 Approved by: Brain Polk M.D. on 01/02/2025 at 21:47 CTA chest PE protocol: Radiologist's Impression: [place] [address] CT Scan Report Signed Patient: Rebecca Funes MR#: [id number] : 1960 Acct:[id number] Age/Sex: 64 / F Date of Service: 01/02/25 Loc: ED Accession Number: [id number] Procedure: CT angio chest PE protocol Ordering Provider: Chino Harp MD PROCEDURE: CT ANGIO CHEST PE PROTOCOL INDICATIONS: fast heart beat TECHNIQUE: After the administration of intravenous contrast, 2 mm thick sections acquired from the pulmonary apices to the posterior costophrenic angles. 3-dimensional maximum intensity projection (MIP) coronal and sagittal reformats were then acquired through the thorax. For radiation dose reduction, the following was used: automated exposure control, adjustment of mA and/or kV according to patient size. COMPARISON: [facility], CT, CT ANGIO CHEST PE PROTOCOL, 05/13/2019, 5:48. FINDINGS: Image quality: Diagnostic Lungs and pleura: No airspace consolidation. Mild basal atelectasis. No pleural effusions. Mediastinum, heart, and esophagus: No acute pulmonary embolism. Unremarkable CT appearance of the esophagus. No enlarged lymph nodes by size criteria ascending aorta measures 3.8 cm. Heart size within normal limits Chest wall and thyroid: Unremarkable Upper abdomen: Separately dictated Bones: No aggressive appearing osseous abnormality. IMPRESSION: No acute pulmonary embolism. Mild bibasal atelectasis. No airspace consolidation or pleural effusion. Dictated by: Brain Polk M.D. on 01/02/2025 at 22:08 Approved by: Brain Polk M.D. on 01/02/2025 at 22:12 CT scan - abdomen/pelvis: Radiologist's Impression: Rebecca Funes??64??F??1960 ? Allergy/Adv: Sulfa (Sulfonamide Antibiotics), hydrochlorothiazide [address] [address] [address] Scan Report Signed Patient: Rebecca Funes MR#: [id number] : 1960 Acct:[id number] Age/Sex: 64 / F Date of Service: 01/02/25 Loc: ED Accession Number: [id number] Procedure: CT abdomen pelvis w con Ordering Provider: Chino Harp MD PROCEDURE: CT ABDOMEN PELVIS W CON INDICATIONS: flank pain, on NTF abx for UTI TECHNIQUE: After the administration of intravenous contrast, axial sections acquired from the lung bases to the pubic symphysis. Coronal and sagittal reformats were performed. For radiation dose reduction, the following was used: automated exposure control, adjustment of mA and/or kV according to patient size. COMPARISON: None. FINDINGS: Image quality: Diagnostic Lower chest: Separately dictated Liver: 1.1 cm hypervascular lesions seen at the inferior tip (coronal image 45) Another typical hemangioma is seen also at the inferior tip more anteriorly Gallbladder and biliary system: Unremarkable, nondilated Pancreas: No ductal dilation. Small calcifications at the tail likely from prior inflammation Spleen: Nonenlarged Adrenals: No discrete nodules Kidneys: Subcentimeter lesions are present, too small to characterize probably cysts. A septated cyst is seen in the left mid region. No enhancing soft tissue nodule. No hydronephrosis. No definite obstructing calcified stone. Multiple phleboliths are seen adjacent to the distal ureters. Vessels and lymph nodes: The main portal vein is patent. No abdominal aortic aneurysm. Mild atherosclerotic calcifications. No enlarged lymph nodes by size criteria Bowel and peritoneum: No bowel obstruction. There are colonic diverticula. No drainable abscess or ascites Body wall: Unremarkable Pelvis: Bladder is unremarkable. Uterus is not seen Bones: No aggressive appearing osseous abnormality. There are degenerative osseous changes. IMPRESSION: No hydronephrosis or obstructing calcified stone identified. Unremarkable CT appearance of the bladder. 1.1 cm hypervascular lesion is seen at the inferior tip of the liver, possibly a capillary hemangioma. More typical cavernous hemangioma is seen just anteriorly. This could be confirmed with nonurgent liver MRI. Other findings above Dictated by: Brain Polk M.D. on 01/02/2025 at 22:12 Approved by: Brain Polk M.D. on 01/02/2025 at 22:17 ECG Data Attestation: I personally reviewed and interpreted this ECG as follows: Interpretation: 2026, sinus tachycardia with rate of 102, no obvious ST segment elevation or depression changes. OH 166, QRS 86, QTC 453. MDM Narrative Medical decision making narrative: 64-year-old female with history paroxysmal atrial fibrillation, previously on Eliquis no longer taking, recent diagnosis urinary tract infection on nitrofurantoin antibiotic, with back pain nontraumatic, concern about kidney infection, had racing heart sensation earlier today despite taking diltiazem for rate control. Afebrile, sirs screen negative. Chest x-ray no acute changes. See radiology report. Lab data: White blood cell count 8400, hemoglobin 14.6, platelets adequate. Glucose 121. Renal function, serum CO2, potassium level normal. Sodium 130 slight low. Liver functions and lipase normal. Troponin negative. Urinalysis not convincing for infection, no urine culture indicated. CTA chest PE protocol. No PE. Mild basilar atelectasis, no consolidation. No mentioned fluid overload. See radiology report. CT abdomen and pelvis. No hydronephrosis, no acute changes. Incidental 1.1 cm hypervascular lesion inferior liver, possible hemangioma. See radiology report. Copies of report printed and reviewed with patient/, follow up incidental findings as an outpatient. No acute changes. Urinalysis not suspicious for infection at this time. Unclear cause of back pain. Consider musculoskeletal cause. Consider Tylenol and/or Motrin as needed for pain control. No tachycardia or ectopy while in the emergency department on monitor. Continue diltiazem and Eliquis. Follow up with PCP advised next couple of days. Follow up with her harness rigger as planned. Return precautions discussed. Discharged home with . Discharge Plan Departure Patient Disposition: Home Clinical Impression: Heart palpitations, Flank pain, Lesion of liver Activity Restrictions/Additional Instructions: History of paroxysmal atrial fibrillation, racing heart symptoms, previously managed with metoprolol but now on diltiazem for heart rate control. Recent oral antibiotic nitrofurantoin for possible urine infection, fast heart rate and racing heart like symptoms today. Blood pressure and heart rate mild increased initially here, improved without specific treatment. Bilateral flank area discomfort of unclear cause, no injury. CT angiogram of the chest showed no blood clots to the lungs or acute pulmonary findings. CT abdomen and pelvis showed no acute findings but did mentioned possible liver lesion at the tip of the liver, possibly a small hemangioma, another hemangioma like change noted anterior to that, further evaluation as an outpatient for now. Urinalysis not convincing for urinary tract infection today. Continue nitrofurantoin antibiotic for now, await results of urine culture if your initial prescribing provider got a urine culture. Recheck with your regular doctor in the next couple of days. Return to this/nearest emergency department for any change worsening symptoms or any concerns prior. Consider calling your harness rigger to see if diltiazem dose needs to be change, or if you might need cardiac ambulatory monitoring, or some other approach for further evaluation. Return earlier to this/nearest emergency department for any change worsening symptoms or any concerns prior. Prescriptions: No Action diltiazem HCl 240 mg capsule,extended release 24 hr 240 mg PO DAILY Qty: 90 1RF metoprolol succinate 25 mg tablet extended release 24 hr 12.5 mg PO DAILY Qty: 30 2RF Rx Instructions: 12.5mg (1/2) tab daily for 1 week, then up to 25mg daily Eliquis 5 mg tablet 5 mg PO BID Qty: 180 1RF Rx Instructions: pt will need to be seen before next renewal thyroid (pork) [[place] Thyroid] 90 mg tablet 75 mg PO QDAY Qty: 0 estradiol 0.025 mg/24 hr patch weekly 1 patch topical Patient Comments: Per patient she places patch on once a week. levothyroxine 50 mcg tablet 50 mcg PO DAILY lisinopril 10 mg tablet 20 mg PO BID Rx Instructions: PT NEEDS TO BE SEEN BY END OF THIS RX PRIOR TO ANY FUTURE FILLS. PLEASE CALL TO SCHED. FUTURE APPT. THANKS 11/12/19 Referrals: Elizabeth Orozco MD [Primary Care Provider, Family Practice] Stand Alone Forms: Patient Portal/API
[2025-01-02 20:21] LABS: Add Manual Diff / Slide Review NO; Hematocrit 42.6 % (36-46); Hemoglobin 14.6 g/dL (12.0-16.0); Lymphocytes Absolute Auto 2200 /uL (1100-4500); Mean Corpuscular HGB Conc 34.2 % (30-36); Mean Corpuscular Hemoglobin 32.6 PG (26-34); Mean Corpuscular Volume 95.5 fL (80-100); Platelet Count 241 X10^3/uL (150-400)
[2025-01-02 20:23] LABS: Appearance Urine UA CLEAR; Bilirubin Urine UA NEGATIVE (NEGATIVE); Color Urine UA YELLOW; Glucose Urine UA NEGATIVE (Negative); Ketones Urine UA NEGATIVE (NEGATIVE); Leukocyte Esterase Urine UA NEGATIVE (NEGATIVE); Nitrite Urine UA NEGATIVE (Negative); Occult Blood Urine UA 1+ (Negative); Protein Urine UA NEGATIVE (Negative); Specific Gravity Urine UA <=1.005 (1.000-1.035); Urobilinogen Urine UA 0.2 E.U./dL (0.2)
--- NOTE | 2025-01-02 20:23 | DI.CT.S_ITS ---
PROCEDURE: CT ABDOMEN PELVIS W CON
--- NOTE | 2025-01-02 20:23 | DI.CT.S_ITS ---
PROCEDURE: CT ANGIO CHEST PE PROTOCOL
[2025-01-02 20:30] LABS: Culture Indicated Urine Cult Not Indicated; pH Urine UA 6.5 (4.5-8.0)
[2025-01-02 20:33] LABS: Alanine Aminotransferase 29 IU/L (<35); Albumin 4.7 g/dL (3.5-5.0); Albumin Globulin Ratio 1.5 (1.0-2.8); Alkaline Phosphatase 77 U/L (38-126); Blood Urea Nitrogen 18 mg/dL (7-17); Calcium 8.8 mg/dL (8.4-10.2); Carbon Dioxide 22 mmol/L (22-32); Chloride 96 mmol/L (98-107); Estimated Glomerular Filt Rate > 60 mL/min (>60); Globulin 3.2 g/dL (1.7-4.1); Glucose 121 mg/dL (70-99); Lipase 117 U/L (23-300); Magnesium 2.2 mg/dL (1.6-2.3); Sodium 130 mmol/L (137-145); Total Protein 7.9 g/dL (6.3-8.2)
[2025-01-02 20:41] LABS: HEMOLYSIS 136 (0-50); Potassium 4.7 mmol/L (3.4-5.1)
[2025-01-02] MEDS: SODIUM CHLORIDE 0.9% 1,000 ML 1000 ML IV (20:42)
[2025-01-02 20:44] LABS: NT-proBNP (BNP-Adult 18+) 443 pg/mL (<125); Troponin I < 0.012 ng/mL (0.01-0.034)
[2025-01-02 20:46] LABS: Lipase 121 U/L (23-300)
[2025-01-04 07:09] LABS: Labcorp Creatine Kinase MB 4.6 ng/mL (0.0-5.3)
== END 2025-01-02 22:48 | disposition home or self-care (01) ==
PROVIDERS: Emergency Provider Emergency Medicine; PCP Family Medicine
DX: R00.2 Palpitations (principal); R10.A0 Flank pain, unspecified side; K76.9 Liver disease, unspecified; I48.0 Paroxysmal atrial fibrillation; Z79.01 Long term (current) use of anticoagulants
CPT/HCPCS: 36415; 71045; 71275; 74177; 80053; 81001; 82553; 83690; 83735; 83880; 84484; 85025; 93005; 96360; 99284; J7030; Q9967

== ENCOUNTER → 2025-02-09 07:49 | Outpatient (CLI) | payer MEDICARE, OTHER, SELFPAY ==
[2019-10-08 08:25] VITALS: BMI 23.3
--- NOTE | 2025-02-09 07:50 | DI.MG.S_ITS ---
MM screening mammo BI: 02/09/2025. BI-RADS: 1 CLINICAL: 64-year old female for bilateral screening mammogram. Tyrer-Cuzick lifetime risk of 10.0%. No personal or first-degree family history of breast cancer. Current reported family history of breast cancer: paternal aunt. The patient had a prior right breast biopsy. PRIOR EXAMS 04/05/2023, 12/17/2020, 02/25/2017. MAMMOGRAPHY TECHNIQUE: 2D and 3D (tomosynthesis) digital mammographic views obtained, with additional images as needed for full coverage. Current study was also evaluated with a Computer Aided Detection (CAD) system. DENSITY C. The breasts are heterogeneously dense, which may obscure small masses. MAMMOGRAPHY FINDINGS Bilateral: No suspicious mass, asymmetry, microcalcification, or other abnormality seen. IMPRESSION: * No evidence of malignancy. RECOMMENDATIONS Bilateral * Annual screening mammography. OVERALL ASSESSMENT CATEGORY BI-RADS-1: Negative. The [employer] recommends annual screening mammography beginning at age 40 for women with average risk of breast cancer. ELECTRONICALLY SIGNED: Kathryn Belrte M.D. on 02/11/2025 at 03:19:38 PM PT Interpreting Station ID: [id number]
[2025-02-09 10:36] LABS: Blood Urea Nitrogen 17 mg/dL (7-17); Calcium 8.7 mg/dL (8.4-10.2); Carbon Dioxide 28 mmol/L (22-32); Chloride 97 mmol/L (98-107); Cholesterol 253 mg/dL (140-199); Estimated Glomerular Filt Rate > 60 mL/min (>60); Glucose 83 mg/dL (70-99); HDL Cholesterol 63 mg/dL (40-60); HEMOLYSIS < 15 (0-50); Potassium 4.2 mmol/L (3.4-5.1); Sodium 133 mmol/L (137-145); Triglycerides 96 mg/dL (35-150)
[2025-02-09 10:39] LABS: NT-proBNP (BNP-Adult 18+) 236 pg/mL (<125)
[2025-02-09 12:56] LABS: Add Manual Diff / Slide Review NO; Hematocrit 41.3 % (36-46); Hemoglobin 14.1 g/dL (12.0-16.0); Lymphocytes Absolute Auto 2100 /uL (1100-4500); Mean Corpuscular HGB Conc 34.1 % (30-36); Mean Corpuscular Hemoglobin 31.9 PG (26-34); Mean Corpuscular Volume 93.5 fL (80-100); Platelet Count 240 X10^3/uL (150-400)
== END ==
PROVIDERS: PCP Family Medicine; Referring Provider Family Medicine; Visit Provider Family Medicine
DX: Z12.31 Encounter for screening mammogram for malignant neoplasm of breast (principal); R92.333 Mammographic heterogeneous density, bilateral breasts; Z80.3 Family history of malignant neoplasm of breast; I11.0 Hypertensive heart disease with heart failure; I50.32 Chronic diastolic (congestive) heart failure; E78.5 Hyperlipidemia, unspecified
CPT/HCPCS: 77063; 77067; 80048; 80061; 83880; 85025